=== PATIENT | female | born 1970 | race Caucasian/White ===

== ENCOUNTER → 2017-07-31 10:58 | Outpatient (REF) | payer MEDICAID, SELFPAY ==
[2017-07-31 14:02] LABS: Amphetamine/Metha Screen,Urine Negative ng/mL (<1000); Barbiturates Screen,Urine Negative ng/mL (<200); Benzodiazepines Screen,Urine Negative ng/mL (200); Cannabinoid Screen,Urine Negative ng/mL (<50); Cocaine Screen,Urine Negative ng/g (<300); Methadone Screen,Urine Negative ng/mL (<300); Opiate Screen,Urine Negative ng/mL (<300); Phencyclidine Screen,Urine Negative ng/mL (<25)
== END ==
LOC: LAB 10:58
PROVIDERS: Visit Provider Nurse Practitioner Family
DX: Z79.899 Other long term (current) drug therapy (principal)
CPT/HCPCS: 80305

== ENCOUNTER → 2018-02-16 17:53 | Outpatient (CLI) | payer MEDICAID, SELFPAY ==
[2018-02-16 19:12] LABS: Amphetamine/Metha Screen,Urine Negative ng/mL (<1000); Barbiturates Screen,Urine Negative ng/mL (<200); Benzodiazepines Screen,Urine Negative ng/mL (<200); Cannabinoid Screen,Urine Negative ng/mL (<50); Cocaine Screen,Urine Negative ng/mL (<300); Methadone Screen,Urine Negative ng/mL (<300); Opiate Screen,Urine Negative ng/mL (<300); Phencyclidine Screen,Urine Negative ng/mL (<25)
== END ==
PROVIDERS: Visit Provider Nurse Practitioner Family
DX: Z79.899 Other long term (current) drug therapy (principal)
CPT/HCPCS: 80305

== ENCOUNTER → 2018-09-01 08:11 | Outpatient (CLI) | payer MEDICAID, SELFPAY | PROVIDERS: Visit Provider Emergency Medicine | DX: R53.83 Other fatigue (principal) ==

== ENCOUNTER → 2018-09-01 14:36 | Outpatient (CLI) | payer MEDICAID, SELFPAY ==
[2018-09-01 15:01] LABS: Basophils % 0.8 % (0.1-2.0); Eosinophils # 0.1 K/mm3 (0.0-0.4); Eosinophils % 2.5 % (0.1-12.0); Hematocrit 42.5 % (37.0-47.0); Hemoglobin 13.6 g/dL (12.2-16.2); Lymphocytes # 1.8 K/mm3 (0.7-4.5); Lymphocytes % 33.9 % (10-50); Mean Corpuscular HGB Conc 32.1 g/dL (31.8-35.4); Mean Corpuscular Hemoglobin 28.9 pg (27.0-31.2); Mean Platelet Volume 7.8 fl (7.4-10.4); Monocytes # 0.4 K/mm3 (0.1-1.0); Monocytes % 6.8 % (1.7-9.3); Neutrophils # 3.1 K/mm3 (1.8-7.8); Neutrophils % 56.2 % (37.0-80.0); Platelet Count 294 K/mm3 (142-424); Red Blood Count 4.73 M/mm3 (4.20-5.40); Red Cell Distribution Width 13.1 % (11.5-17.5); White Blood Count 5.4 K/mm3 (4.8-10.8)
[2018-09-01 15:51] LABS: Alanine Aminotransferase 30 U/L (12-78); Albumin Level 3.6 gm/dL (3.4-5.0); Albumin/Globulin Ratio 1.3 (1.1-1.8); Alkaline Phosphatase 71 U/L (46-116); Anion Gap 17.2 mEq/L (5-15); Aspartate Amino Transferase 16 U/L (15-37); Bilirubin,Total 0.3 mg/dL (0.2-1.0); Blood Urea Nitrogen 7 mg/dL (7-18); Calcium 8.7 mg/dL (8.5-10.1); Carbon Dioxide 25 mmol/L (21.0-32.0); Chloride 105 mmol/L (98-107); Chol/HDL Ratio 3.1 (1-3.5); Cholesterol 138 mg/dL (140-200); Creatinine,Serum 1.01 mg/dL (0.55-1.02); Estimated Glomerular Filt Rate 59 ml/min (>60); Free T4 (Free Thyroxine) 1.04 ng/dl (0.76-1.46); GFR (African American) 71 ML/MIN (>60); Globulin 2.8 gm/dl (1.3-3.2); Glucose 81 mg/dL (74-106); HDL Cholesterol 45 mg/dL (29-89); LDL Cholesterol 80 mg/dL (0-130); Potassium 4.2 mmoL/L (3.5-5.1); Sodium 143 mmol/L (136-145); Thyroid Stimulating Hormone 2.16 uIU/ml (0.358-3.740); Total Protein,Serum 6.4 gm/dL (6.4-8.2); Triglycerides 66 mg/dL (30-200); VLDL Cholesterol 13 mg/dL (0-40)
[2018-09-02 13:09] LABS: Amphetamine/Metha Screen,Urine Negative ng/mL (<1000); Barbiturates Screen,Urine Negative ng/mL (<200); Benzodiazepines Screen,Urine Negative ng/mL (<200); Cannabinoid Screen,Urine Negative ng/mL (<50); Cocaine Screen,Urine Negative ng/mL (<300); Methadone Screen,Urine Negative ng/mL (<300); Opiate Screen,Urine Negative ng/mL (<300); Phencyclidine Screen,Urine Negative ng/mL (<25)
[2018-09-03 09:32] LABS: Vitamin D 25 Hydroxy 37.5 ng/mL (30.0-100.0)
== END ==
PROVIDERS: Visit Provider Emergency Medicine
DX: R53.83 Other fatigue (principal); Z79.899 Other long term (current) drug therapy; M54.9 Dorsalgia, unspecified; E66.3 Overweight
CPT/HCPCS: 80053; 80061; 80305; 82652; 84439; 84443; 85025

== ENCOUNTER → 2019-10-29 16:48 | Outpatient (CLI) | payer MEDICAID, SELFPAY ==
[2019-10-29 17:01] LABS: Basophils % 0.6 % (0.1-2.0); Eosinophils # 0.1 K/mm3 (0.0-0.4); Eosinophils % 3.3 % (0.1-12.0); Hematocrit 40.8 % (37.0-47.0); Hemoglobin 13.2 g/dL (12.2-16.2); Lymphocytes # 1.8 K/mm3 (0.7-4.5); Mean Corpuscular HGB Conc 32.4 g/dL (31.8-35.4); Mean Corpuscular Hemoglobin 28.9 pg (27.0-31.2); Mean Corpuscular Volume 89.2 fl (81-99); Mean Platelet Volume 7.4 fl (7.4-10.4); Monocytes # 0.2 K/mm3 (0.1-1.0); Monocytes % 5.4 % (1.7-9.3); Neutrophils # 2.2 K/mm3 (1.8-7.8); Neutrophils % 50.7 % (37.0-80.0); Platelet Count 246 K/mm3 (142-424); Red Blood Count 4.57 M/mm3 (4.20-5.40); Red Cell Distribution Width 12.6 % (11.5-17.5); White Blood Count 4.4 K/mm3 (4.8-10.8)
[2019-10-29 17:18] LABS: Alanine Aminotransferase 40 U/L (12-78); Albumin Level 3.8 g/dl (3.5-5.0); Albumin/Globulin Ratio 1.6 (1.1-1.8); Alkaline Phosphatase 77 U/L (38-126); Anion Gap 11.9 mEq/L (5-15); Aspartate Amino Transferase 41 U/L (14-36); Bilirubin,Total 0.3 mg/dl (0.2-1.3); Blood Urea Nitrogen 11 mg/dl (7-17); Calcium 9.5 mg/dl (8.4-10.2); Carbon Dioxide 27 mmol/L (22.0-30.0); Chloride 105 mmol/L (98-107); Chol/HDL Ratio 2.7 (1-3.5); Cholesterol 145 mg/dl (140-200); Estimated Glomerular Filt Rate 67 ml/min (>60); GFR (African American) 81 ML/MIN (>60); Globulin 2.4 g/dL (1.3-3.2); Glucose 113 mg/dl (74-100); HDL Cholesterol 54 mg/dl (40-60); Potassium 3.9 mmoL/L (3.5-5.1); Sodium 140 mmol/L (136-145); Total Protein,Serum 6.2 g/dl (6.3-8.2); Triglycerides 75 mg/dl (30-150); VLDL Cholesterol 15 mg/dL (0-40)
[2019-10-29 17:29] LABS: Direct LDL Cholesterol 82.97 mg/dL (100-129)
[2019-10-29 17:35] LABS: T4 (Thyroxine) 8.1 ug/dl (5.53-11.0)
[2019-10-29 17:48] LABS: Thyroid Stimulating Hormone 2.62 uIU/mL (0.465-4.68)
== END ==
PROVIDERS: Visit Provider Emergency Medicine
DX: M79.2 Neuralgia and neuritis, unspecified (principal); Z79.899 Other long term (current) drug therapy
CPT/HCPCS: 80053; 80061; 82306; 84436; 84443; 85025

== ENCOUNTER → 2019-11-15 09:31 | Outpatient (CLI) | payer MEDICAID, SELFPAY ==
[2019-11-15 11:38] LABS: Hemoglobin A1C 5.3 % (4.0-6.0)
== END ==
PROVIDERS: Visit Provider Physician Assistant
DX: R73.9 Hyperglycemia, unspecified (principal)
CPT/HCPCS: 36415; 83036

== ENCOUNTER → 2019-11-26 11:11 | Outpatient (CLI) | payer MEDICAID, SELFPAY ==
--- NOTE | 2019-11-26 11:11 | MM_ITS ---
PROCEDURE: MM DIG SCREENING MAMM BI W/CAD Referring Doctor: José Miguel Loya Patient Age:49Y CLINICAL INDICATION: screening. No hormones. No new complaints.. Patient with previous left benign surgical excisional biopsy. Family history maternal grandmother with breast cancer. COMPARISON: MG DMSB DIG MAMM-SCREEN ANUPAM from 07/14/2014 MG [id number] DIG MAMM-DX UNI ADD VIEWS-RT from 07/28/2014 MG DMSB DIG MAMM-SCREEN ANUPAM from 01/03/2016 MG DMSB DIG MAMM-SCREEN ANUPAM W/CAD from 02/07/2017 TECHNIQUE: Standard CC and MLO images were obtained. R2 CAD reviewed. Bilateral digital breast tomosynthesis included. FINDINGS: Moderate density breast bilaterally. Somewhat heterogeneous fibroglandular elements which are distributed mainly at the central breast and upper outer quadrant . Right breast:. No suspicious calcifications but there is a 2.2 x 1.6 cm ovoid mass at the lateral retroareolar region. Probable cyst but recommend ultrasound to further evaluate along with spot cc and MLO view Left breast: CC view there is a small nodular density at the lateral left breast labeled X measuring just over 5 mm which is been present since 2014 and is a stable feature.. Likely a stable small intramammary node Also seen central breast CC views a vague round density labeled Y measure 8 mm diameter. Finally medial breast on CC view also note a vague less than 5 mm round density, labeled Z. These latter densities were likely present before but would also benefit from ultrasound of left breast ultrasound when the patient returns but if no cyst is seen to correlate with area Y on ultrasound than spot views of area labeled Y may be of benefit. The vague areas Y and Z of seen on CC tomosynthesis but not well visualized on MLO tomosynthesis view thus of doubtful significance IMPRESSION: Right breast: New 2.2 x 1.6 cm mass with fairly well-defined margins lateral retroareolar region, probable cyst . This is the most prominent new finding with today's studies Warrants ultrasound and spot views Left breast: most likely stable small nodular densities noted, but would also suggest ultrasound when patient returns. (I believe X is stable nodule; the vague areas Y and Z of doubtful significance on tomosynthesis) If no cysts are identified with initial ultrasound then spot views Y may be warranted on the left as well BI-RAD Category: 0 Need Additional Imaging Evaluation FOLLOW-UP: IMM Immediate Follow-up Recommended Bilateral breast ultrasound with spot views right breast mass. If ultrasound left breast reveal no corresponding cyst the spot views on left may be warranted as well (A letter has been sent to the patient regarding results of the study.) Dictated by: Christian Macario MD 11/30/2019 08:47 Chirstian Macario MD in [place] 11/30/2019 08:47
== END ==
PROVIDERS: PCP Emergency Medicine; Visit Provider Emergency Medicine
DX: Z12.31 Encounter for screening mammogram for malignant neoplasm of breast (principal)
CPT/HCPCS: 77063; 77067

== ENCOUNTER → 2019-12-17 13:38 | Outpatient (CLI) | payer MEDICAID, SELFPAY ==
--- NOTE | 2019-12-17 13:39 | US_ITS ---
PROCEDURE: MM DIG MAMM BI DX W/CAD Digital Breast Tomosynthesis Included CLINICAL INDICATION: ABN MAMM Follow-up abnormal mammogram COMPARISON: US BL US BREAST-LT COMPLETE W/AXILLA from 01/30/2015 MG DMSB DIG MAMM-SCREEN ANUPAM from 01/03/2016 MG DMSB DIG MAMM-SCREEN ANUPAM W/CAD from 02/07/2017 MG MM DIG SCREENING MAMM BI W/CAD from 11/26/2019 US US BREAST LT COMPLETE from 12/17/2019 US US BREAST RT COMPLETE from 12/17/2019 TECHNIQUE: Spot-compression views are performed along with bilateral breast ultrasound FINDINGS: Right breast: There is a persistent 1.8 x 2.2 cm well-circumscribed nodule in the outer aspect of the right breast. There is some minimal calcification adjacent to this nodule which is probably benign. In addition, there is some nodularity involving the central aspect of the right breast in the retroareolar region at 7 mm. There is a density present just anterior to this area as well which is probably unchanged.. Right breast ultrasound: At 12 o'clock there is an 8 x 5 mm cyst. At 10 o'clock there is a 21 x 11 mm cyst corresponding to the mammographic abnormality. An additional 5 mm cyst is present at 10 o'clock. There is some tubal ectasia in the retroareolar region Left breast: Spot compression views were obtained. There is a faint nodular opacity in the inferior left breast at 5 mm. This may be outer not significantly changed in the outer aspect of the breast on the CC view. Left breast ultrasound: At 1 o'clock there are 2 cyst measuring 10 and 7 mm. At 8 o'clock there is a complicated cyst at 5 mm. No suspicious nodules are evident. IMPRESSION: Probably benign findings bilaterally. Recommend bilateral mammographic and sonographic follow-up in 6 months BI-RAD Category: 3 Probably Benign Finding Short Term Follow-up FOLLOW-UP: 6M 6Month Follow-up (A letter has been sent to the patient regarding results of the study.) Dictated by: Ramu Rose MD 12/20/2019 10:46 Ramu Rose MD in [place] 12/20/2019 10:46
== END ==
PROVIDERS: PCP Emergency Medicine; Visit Provider Physician Assistant
DX: R92.8 Other abnormal and inconclusive findings on diagnostic imaging of breast (principal)
CPT/HCPCS: 76641; 77062; 77066; G0279

== ENCOUNTER 2020-05-06 09:13 | Emergency (ER) | payer MEDICAID, SELFPAY ==
[2020-05-06 09:14] VITALS: BP 159/82; PULSE 78; RESP 16; TEMP 36.5; O2SAT 98; BMI 34.0
--- NOTE | 2020-05-06 09:17 | HMH.EDGENADL ---
ED Disposition Clinical Impression: Muscle spasm Disposition: Home, Self-Care Condition on Discharge: Good Instructions: DI for Muscle Spasm Additional Instructions: Follow-up with your primary care provider in 2 to 3 days for reevaluation. Return to the emergency department for any acute worsening symptoms or other acute new concerns. - Critical Care Critical Care Time: No Attestation: On , the high probability of a clinically significant, sudden or life threatening deterioration of the following system(s) required my full and direct attention, intervention and personal management. The time I documented below is in addition to time spent performing reported procedures but includes the following listed in this critical care notation. Medical Decision Making - Medical Records Medical records reviewed: Yes: I reviewed the patient's medical records. - Avi Inquiry Pt receiving controlled substance: No Vital Signs: 05/06/20 09:14 05/06/20 09:55 Temperature 97.7 F Temperature Source Oral Pulse Rate [Right] 78 64 Respiratory Rate 16 18 Blood Pressure [Right Arm] 159/82 H 162/80 H Blood Pressure Mean [Right Arm] 107 107 Blood Pressure Source [Right Arm] Automatic Cuff Blood Pressure Position [Right Arm] Sitting 02 Sat by Pulse Oximetry 98 94 L Oxygen Delivery Method Room Air Orders (Tests/Meds): ED MEDICATIONS Discontinued Medications Generic Name Dose Route Start Last Admin Trade Name Freq PRN Reason Stop Dose Admin Cyclobenzaprine HCl 5 mg 05/06/20 09:24 05/06/20 09:30 Cyclobenzaprine 10mg Tablet PO 05/06/20 09:25 5 mg ONCE ONE Administration Ketorolac Tromethamine 60 mg 05/06/20 09:24 05/06/20 09:30 Ketorolac 60mg/2ml Vial IM 05/06/20 09:25 60 mg ONCE ONE Administration Medical Decision Narrative: Patient here with what sounds like musculoskeletal pain, likely muscle spasm that is typical for her, but worse this morning. She has some improvement with Toradol, Flexeril and is able to ambulate in the emergency department. Motor, sensory, vascular supply distally is intact. Symptomology inconsistent with cauda equina, epidural abscess, discitis. No recent falls or trauma that would have caused a fracture that would require imaging. Discharged home. General Adult HPI - General Chief complaint: PAIN Stated complaint: back pain Time Seen by Provider: 05/06/20 09:18 Mode of Arrival: EMS Limitations: No Limitations Description of Symptoms (Recalled from ER Triage Doc. by RN): Pt c/o lower back pain that hurts around into her right hip. c/o pain when she moves advises she woke up this am with severe pain. Denies any known injury - History of Present Illness HPI narrative: This is a 49 yo female with a past medical history significant for depression, previous history of narcotic abuse currently maintained on Suboxone and baclofen, who presents to the emergency department for evaluation of right upper buttock pain that radiates around to her right hip. It is worse with moving the right leg. No recent falls or trauma. She denies any back pain, fever, urinary symptoms or abdominal pain. She typically has this pain in the morning, but she is able to get up and move around and it will loosen up. She was in so much pain this morning that she was unable to get moving, so presents to the ED. No history of cancer and no history of IV drug abuse. - Related Data Home Medications Medication Instructions Recorded Confirmed buprenorphine 8 mg-naloxone 2 mg 1 film SUBLINGUAL DAILY 17 Days 04/24/18 04/26/20 sublingual tablet #34 tab Previous Rx's Medication Instructions Recorded baclofen 10 mg tablet See Rx Instructions .ROUTE 06/28/19 .COMPLEX #180 unspecified gabapentin 600 mg tablet 600 mg PO TID #90 tab 04/26/20 bupropion HCl 200 mg tablet,12 hr See Rx Instructions .ROUTE 04/28/20 sustained-release .COMPLEX #90 each topiramate 25 mg tablet 25 mg PO HS #90
[2020-05-06 09:55] VITALS: BP 162/80; PULSE 64; RESP 18; O2SAT 94
[2020-05-06 10:20] VITALS: BP 128/78; PULSE 74; RESP 16; TEMP 36.6; O2SAT 98
== END 2020-05-06 10:22 | disposition home or self-care (01) ==
PROVIDERS: Emergency Provider Emergency Medicine; PCP Emergency Medicine
DX: M62.830 Muscle spasm of back (principal); M54.5 Low back pain; F19.11 Other psychoactive substance abuse, in remission; F41.8 Other specified anxiety disorders; F17.210 Nicotine dependence, cigarettes, uncomplicated; Z79.899 Other long term (current) drug therapy
CPT/HCPCS: 96372; 99282

== ENCOUNTER → 2020-10-04 13:16 | Outpatient (CLI) | payer MEDICAID, SELFPAY | PROVIDERS: Visit Provider Nurse Practitioner Family | DX: Z11.52 Encounter for screening for COVID-19 (principal); G62.9 Polyneuropathy, unspecified | CPT/HCPCS: U0003 ==

== ENCOUNTER 2020-11-13 14:00 | Emergency (ER) | payer MEDICAID, SELFPAY ==
[2020-11-13 16:16] VITALS: BP 124/77; PULSE 56; RESP 18; TEMP 36.7; O2SAT 100; BMI 33.2
--- NOTE | 2020-11-13 16:44 | HMH.EDUTC ---
[facility] [place] Disposition Clinical Impression: Exposure to COVID-19 virus Disposition: Home, Self-Care Condition on Discharge: Good Instructions: Preventing the Spread of Coronavirus Discharge Instructions Additional Instructions: Drink plenty of fluids. Take tylenol for pain or fever. Return if you begin to have difficulty breathing. Follow up with your regular doctor. GO TO THE ER FOR ANY WORSENING SYMPTOMS Referrals: José Miguel Loya MD [Primary Care Provider] - Time of Disposition: 16:55 Medical Decision Making - Medical Records Medical records reviewed: No: I reviewed the patient's medical records. - Avi Inquiry Pt receiving controlled substance: No Vital Signs: 11/13/20 16:16 11/13/20 17:05 Temperature 98.1 F 98 F Temperature Source Oral Pulse Rate 63 Pulse Rate [Left] 56 L Respiratory Rate 18 16 Blood Pressure 119/74 Blood Pressure [Right Arm] 124/77 Blood Pressure Mean [Right Arm] 92 02 Sat by Pulse Oximetry 100 [facility] [place] HPI - General Stated complaint: covid test Time Seen by Provider: 11/13/20 16:44 Mode of Arrival: Ambulatory Source of Information: Patient Limitations: No Limitations Description of Symptoms (Recalled from Triage Doc. by RN): pt was directly exposed to covid last fri. pt is asymptomatic. 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 She denies any symptoms so far. Her exposure would have happened 5 to 6 days ago. - Related Data Home Medications Medication Instructions Recorded Confirmed buprenorphine 8 mg-naloxone 2 mg 1 film SUBLINGUAL DAILY 17 Days 04/24/18 10/27/20 sublingual tablet #34 tab Previous Rx's Medication Instructions Recorded bupropion HCl 200 mg tablet,12 hr See Rx Instructions .ROUTE 04/28/20 sustained-release .COMPLEX #90 each topiramate 25 mg tablet 25 mg PO HS #90 tab 04/28/20 baclofen 10 mg tablet See Rx Instructions .ROUTE 08/16/20 .COMPLEX #180 unspecified azithromycin 250 mg tablet See Rx Instructions PO .COMPLEX #6 10/27/20 tab gabapentin 800 mg tablet 800 mg PO QID #120 tab 10/27/20 methylprednisolone 4 mg tablets in See Rx Instructions PO PER PKG DIR 10/27/20 a dose pack #21 tab Allergies Allergy/AdvReac Type Severity Reaction Status Date / Time No Known Allergies Allergy Verified 10/27/20 11:37 - Worker's Comp Is this a Worker's Comp case?: No [facility] History - Hepatitis A Screen Drug use history?: No High risk sexual behaviors?: No History of sexually transmitted infection?: No Currently employed?: No Childcare worker?: No Do you have indoor plumbing?: Yes Do you have electricity?: Yes Attestation statement:: This patient has been screened for Hepatitis A risk factors. 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
[2020-11-13 17:05] VITALS: BP 119/74; PULSE 63; RESP 16; TEMP 36.6
== END 2020-11-13 17:08 | disposition home or self-care (01) ==
PROVIDERS: Emergency Provider Nurse Practitioner Family; PCP Emergency Medicine
DX: Z20.822 Contact with and (suspected) exposure to COVID-19 (principal); F41.8 Other specified anxiety disorders; G43.709 Chronic migraine without aura, not intractable, without status migrainosus; F17.210 Nicotine dependence, cigarettes, uncomplicated
CPT/HCPCS: 99202; G0463; U0003

== ENCOUNTER 2021-01-10 14:19 | Emergency (ER) | payer MEDICAID, SELFPAY ==
[2021-01-10 14:25] VITALS: BP 120/84; PULSE 72; RESP 20; TEMP 36.7; O2SAT 97; BMI 33.2
--- NOTE | 2021-01-10 14:47 | HMH.EDUTC ---
[facility] [place] Clinical Impression: Sinusitis Qualifiers: Sinusitis location: unspecified location Chronicity: unspecified Qualified Code(s): J32.9 - Chronic sinusitis, unspecified Disposition: Home, Self-Care Condition on Discharge: Good Instructions: Sinusitis, DI for Sinusitis, DI for Cough -- Adult Additional Instructions: ? Start antibiotic today. Be sure to complete entire prescription even if feeling better ? Monitor temp. Tylenol every 4 hours as needed and / or ibuprofen every 6 hours as needed ( As long as your primary care physician has told you that it ok to take both. For fever/aches/pains ER if no less than 101 despite Tylenol or Motrin ? Humidifier/vaporizer or hot steamy shower ? Mucinex for your cough Be sure to drink lots of water. *Start steroid today. Helps with inflammation therefore, cough and wheezing. Follow directions on the package. Reviewed side effects. Patient reports taking them before. Follow up IMMEDIATELY for new or worsening of symptoms OR no noticeable improvement over the next 48-72 hours. 911 immediately for any life threatening symptoms such as chest pain or difficulty breathing Prescriptions: methylPREDNISolone [Medrol 4mg tab] 4 mg PO DIRECTED #21 tab Transmission Status: Pending to [facility] Azithromycin [Z-Wade 250mg Tab] 250 mg PO DIRECTED #6 tab Transmission Status: Pending to [facility] Referrals: José Miguel Loya MD [Primary Care Provider] - As needed Time of Disposition: 14:56 Medical Decision Making - Avi Inquiry Pt receiving controlled substance: No Avi was queried for this patient: No Vital Signs: 01/10/21 14:25 Temperature 98.0 F Temperature Source Oral Pulse Rate [Right Brachial] 72 Respiratory Rate 20 Blood Pressure [Right Arm] 120/84 Blood Pressure Mean [Right Arm] 96 Blood Pressure Source [Right Arm] Automatic Cuff Blood Pressure Position [Right Arm] Sitting 02 Sat by Pulse Oximetry 97 Oxygen Delivery Method Room Air - Lab Data Lab results reviewed: Yes: I reviewed the patient's lab results. Lab Results 01/10/21 14:49: Strep Scn Rapid Clinic Negative Orders (Tests/Meds): ORDERS Category Date Time Status Covid-19 Nasal PCR ([facility]) Routine Lab 01/10/21 14:22 Ordered Strep Screen Confirmation Stat Micro 01/10/21 14:49 Received [facility] [place]PI - General Stated complaint: covid symptoms Time Seen by Provider: 01/10/21 14:47 Mode of Arrival: Ambulatory Source of Information: Patient Limitations: No Limitations Description of Symptoms (Recalled from Triage Doc. by RN): PATIENT C/O BODY ACHES, SORE THROAT, HEADACHE AND RUNNY NOSE X 2 DAYS AND DIARRHEA THAT STARTED THIS AM HEENT Symptoms (Recalled from RN notes): Yes Resp Symptoms (Recalled from RN notes): No Skin Symptoms (Recalled from RN notes): No MS Symptoms (Recalled from RN notes): No Functional Status (Recalled from RN notes): WNL - History of Present Illness Provider Complaint: Patient states that she feels like she has Strep throat or sinus infection States that she has been having sinus pressure and drainage in the back of her throat States that this morning she started having diarrhea, headache and body aches go worried that she may have COVID too so she came in to get checked - Related Data Home Medications Medication Instructions Recorded Confirmed buprenorphine 8 mg-naloxone 2 mg 1 film SUBLINGUAL DAILY 17 Days 04/24/18 01/10/21 sublingual tablet #34 tab Baclofen [Lioresal 10mg tablet] 10 mg PO DAILYP PRN 01/10/21 01/10/21 Gabapentin 800 mg PO TID 01/10/21 01/10/21 Topiramate [Topiramate ER] 25 mg PO HS 01/10/21 01/10/21 buPROPion HCL [Bupropion HCl Sr] 200 mg PO BID 01/10/21 01/10/21 Previous Rx's Medication Instructions Recorded Azithromycin [Z-Wade 250mg Tab] 250 mg PO DIRECTED #6 tab 01/10/21 methylPREDNISolone [Medrol 4mg 4 mg PO DIRECTED #21 tab 01/10/21 tab] Allergies Allergy/AdvRea
[2021-01-10 14:50] LABS: UTC Strep Screen (Rapid) Negative (Negative)
[2021-01-10 15:05] VITALS: BP 120/84; PULSE 72; RESP 20; TEMP 36.7; O2SAT 97
== END 2021-01-10 15:09 | disposition home or self-care (01) ==
PROVIDERS: Emergency Provider Nurse Practitioner; PCP Emergency Medicine
DX: J32.9 Chronic sinusitis, unspecified (principal); Z20.822 Contact with and (suspected) exposure to COVID-19; F17.210 Nicotine dependence, cigarettes, uncomplicated
CPT/HCPCS: 87880; 99203; C9803; G0463; U0003; U0005

== ENCOUNTER 2021-02-19 13:21 | Emergency (ER) | payer MEDICAID, SELFPAY ==
[2021-02-19 13:48] VITALS: BP 100/75; PULSE 78; RESP 16; TEMP 36.7; O2SAT 99; BMI 21.4
[2021-02-19 14:06] LABS: UTC Strep Screen (Rapid) Negative (Negative)
--- NOTE | 2021-02-19 14:17 | HMH.EDUTC ---
[facility] [place] Disposition Clinical Impression: Sinusitis Qualifiers: Sinusitis location: unspecified location Chronicity: unspecified Qualified Code(s): J32.9 - Chronic sinusitis, unspecified Disposition: Home, Self-Care Condition on Discharge: Good Instructions: Sinusitis, DI for Sinusitis, Azithromycin Additional Instructions: *Monitor Temp, Over the counter Motrin or Tylenol as directed/as needed Tylenol every 4 hours and Motrin every 6 hours (as long as your family doctor has told you that you can take it) for fever or pain. and straight to ER if unable to lower temp less than 101.0 after medication given *Warm salt water gargles may help to soothe the throat *Throat Lozenges *Warm fluids like tea with honey may help to soothe the throat *Sleep elevated *Humidifier/Vaporizer Take medication as prescribed Your throat swab was sent for culture. Those results are typically sent to your primary care. Be sure to follow up in 2-3 days with your family doctor/primary care physician if no improvement so they can review those result and treat if necessary. If you don?t have a primary care doctor, I recommend you get one but in the mean time, you will have to return to a walk in clinic Follow up IMMEDIATELY for new or worsening symptoms or no Noticeable improvement over the next 48-72 hours. 911 for difficulty breathing or swallowing Prescriptions: methylPREDNISolone [Medrol 4mg tab] 4 mg PO DIRECTED #21 tab Transmission Status: Pending to [facility] better. Azithromycin [Z-Wade 250mg Tab] 250 mg PO DIRECTED #6 tab Transmission Status: [facility] Referrals: José Miguel Loya MD [Primary Care Provider] - As needed Time of Disposition: 14:20 Medical Decision Making - Avi Inquiry Pt receiving controlled substance: No Avi was queried for this patient: No Vital Signs: 02/19/21 13:48 Temperature 98.1 F Temperature Source Oral Pulse Rate [Left] 78 Respiratory Rate 16 Blood Pressure [Right Arm] 100/75 L Blood Pressure Mean [Right Arm] 83 02 Sat by Pulse Oximetry 99 - Lab Data Lab results reviewed: Yes: I reviewed the patient's lab results. Lab Results 02/19/21 13:54: Strep Scn Rapid Clinic Negative Orders (Tests/Meds): ORDERS Category Date Time Status Strep Screen Confirmation Routine Micro 02/19/21 13:54 Received Medical Decision Narrative: Patient states that she has taken azithromycin and Medrol in the past without complications or reactions [facility] [place] HPI - General Stated complaint: sore throat,cough,headache,runny nose,congestion Time Seen by Provider: 02/19/21 14:17 Mode of Arrival: Ambulatory Source of Information: Patient Limitations: No Limitations Description of Symptoms (Recalled from Triage Doc. by RN): pt c/o sore throat, nasal drainage/congestion and ROE x2 days. HEENT Symptoms (Recalled from RN notes): Yes (sore throat, nasal drainage/congestion and ROE) Resp Symptoms (Recalled from RN notes): No Skin Symptoms (Recalled from RN notes): No MS Symptoms (Recalled from RN notes): No Functional Status (Recalled from RN notes): na - History of Present Illness Provider Complaint: Patient states that she has been having sinus pain and pressure along with sore throat, headache and cough States that she hasnt felt well in a couple of days and today she was still feeling bad so she came in - Related Data Home Medications Medication Instructions Recorded Confirmed buprenorphine 8 mg-naloxone 2 mg 1 film SUBLINGUAL DAILY 17 Days 04/24/18 01/31/21 sublingual tablet #34 tab Baclofen [Lioresal 10mg tablet] 10 mg PO DAILYP PRN 01/10/21 01/31/21 Topiramate [Topiramate ER] 25 mg PO HS 01/10/21 01/31/21 buPROPion HCL [Bupropion HCl Sr] 200 mg PO BID 01/10/21 01/31/21 Previous Rx's Medication Instructions Recorded gabapentin 800 mg tablet 800 mg PO TID #90 tab 01/31/21 Azithromycin [Z-Wade 250mg Tab] 250 mg PO DIRECTED #6 tab 02/19/21 methylPREDNISolone
[2021-02-19 14:54] VITALS: BP 100/75; PULSE 78; RESP 12; TEMP 36.7
== END 2021-02-19 14:55 | disposition home or self-care (01) ==
PROVIDERS: Emergency Provider Nurse Practitioner; PCP Emergency Medicine
DX: J32.9 Chronic sinusitis, unspecified (principal); F41.8 Other specified anxiety disorders
CPT/HCPCS: 87880; 99202; G0463

== ENCOUNTER 2021-04-11 09:47 | Emergency (ER) | payer MEDICAID, SELFPAY ==
[2021-04-11 11:19] VITALS: BP 140/71; PULSE 62; RESP 16; TEMP 36.6; O2SAT 100; BMI 31.2
--- NOTE | 2021-04-11 11:33 | HMH.EDUTC ---
[facility] [place] Disposition Clinical Impression: Strep throat Disposition: Home, Self-Care Condition on Discharge: Good Instructions: Strep Throat, DI for Strep Throat Additional Instructions: Drink plenty of fluids. Take tylenol or ibuprofen for pain or fever. Take the medications as directed. Follow up with your regular doctor. GO TO THE ER FOR ANY WORSENING SYMPTOMS Throw your tooth brush away and get a new one. Prescriptions: Brompheniramine/Pseudoephed/Dm [Bromfed Dm Cough Syrup] 5 ml PO Q6HP PRN #240 ml PRN Reason: Cough Transmission Status: Received by [facility] Amoxicillin [Amoxicillin 500mg Tab] 500 mg PO TID 10 Days #30 tab Transmission Status: Received by [facility] Referrals: José Miguel Loya MD [Primary Care Provider] - Forms: Work/School Release Time of Disposition: 11:45 Medical Decision Making - Medical Records Medical records reviewed: No: I reviewed the patient's medical records. - Avi Inquiry Pt receiving controlled substance: No Vital Signs: 04/11/21 11:19 04/11/21 11:58 Temperature 98 F 98 F Temperature Source Temporal Artery Scan Pulse Rate 62 Pulse Rate [Left] 62 Respiratory Rate 16 16 Blood Pressure 140/71 Blood Pressure [Right Arm] 140/71 Blood Pressure Mean [Right Arm] 94 02 Sat by Pulse Oximetry 100 - Lab Data Lab results reviewed: Yes: I reviewed the patient's lab results. Lab Results 04/11/21 11:26: Influenza Type A Ag Negative, Influenza Type B Ag Negative 04/11/21 11:26: Strep Scn Rapid Clinic Positive A [facility] [place] HPI - General Stated complaint: sore throat Time Seen by Provider: 04/11/21 11:33 Mode of Arrival: Ambulatory Source of Information: Patient Limitations: No Limitations Description of Symptoms (Recalled from Triage Doc. by RN): pt c/o chills, body aches, sore throat, cold sweats, ROE, and lethargy. since last night. HEENT Symptoms (Recalled from RN notes): Yes Resp Symptoms (Recalled from RN notes): No Skin Symptoms (Recalled from RN notes): No MS Symptoms (Recalled from RN notes): No Functional Status (Recalled from RN notes): wnl - History of Present Illness Provider Complaint: She states that for the past 2 days she has had a sore throat, sinus congestion, and low grade fever. She had a negative rapid covid-19 test done yesterday at her work. - Related Data Home Medications Medication Instructions Recorded Confirmed buprenorphine 8 mg-naloxone 2 mg 1 film SUBLINGUAL DAILY 17 Days 04/24/18 01/31/21 sublingual tablet #34 tab Baclofen [Lioresal 10mg tablet] 10 mg PO DAILYP PRN 01/10/21 01/31/21 Topiramate [Topiramate ER] 25 mg PO HS 01/10/21 01/31/21 buPROPion HCL [Bupropion HCl Sr] 200 mg PO BID 01/10/21 01/31/21 Previous Rx's Medication Instructions Recorded gabapentin 800 mg tablet 800 mg PO TID #90 tab 01/31/21 Azithromycin [Z-Wade 250mg Tab] 250 mg PO DIRECTED #6 tab 02/19/21 methylPREDNISolone [Medrol 4mg 4 mg PO DIRECTED #21 tab 02/19/21 tab] Amoxicillin [Amoxicillin 500mg Tab] 500 mg PO TID 10 Days #30 tab 04/11/21 Brompheniramine/Pseudoephed/Dm 5 ml PO Q6HP PRN #240 ml 04/11/21 [Bromfed Dm Cough Syrup] Allergies Allergy/AdvReac Type Severity Reaction Status Date / Time No Known Allergies Allergy Verified 01/31/21 09:18 - Worker's Comp Is this a Worker's Comp case?: No [facility] History - Hepatitis A Screen Drug use history?: No High risk sexual behaviors?: No History of sexually transmitted infection?: No Currently employed?: No Childcare worker?: No Do you have indoor plumbing?: Yes Do you have electricity?: Yes Attestation statement:: This patient has been screened for Hepatitis A risk factors. I have reviewed the patient's past medical history: Yes Medical History: Reports:: Anxiety, Depression, Migraine Denies:: Cancer, Diabetes Mellitus Type 1, Diabetes Mellitus Type 2, MRSA Other Medical History: Reports: Other Comment: NEUROPATHY,CHRON
[2021-04-11 11:34] LABS: UTC Strep Screen (Rapid) Positive (Negative)
[2021-04-11 11:37] LABS: UTC Influenza A Antigen Negative (Negative); UTC Influenza B Antigen Negative (Negative)
[2021-04-11 11:58] VITALS: BP 140/71; PULSE 62; RESP 16; TEMP 36.6
== END 2021-04-11 11:59 | disposition home or self-care (01) ==
PROVIDERS: Emergency Provider Nurse Practitioner Family; PCP Emergency Medicine
DX: J02.0 Streptococcal pharyngitis (principal); F41.8 Other specified anxiety disorders
CPT/HCPCS: 87804; 87880; 99203; G0463

== ENCOUNTER 2021-04-22 17:24 | Emergency (ER) | payer MEDICAID, SELFPAY ==
[2021-04-22 17:56] VITALS: BP 162/105; PULSE 80; RESP 18; TEMP 37; O2SAT 99; BMI 32.2
--- NOTE | 2021-04-22 18:51 | HMH.EDUTC ---
[facility] [place] Disposition Clinical Impression: Muscle spasm, Torticollis, Acute radicular low back pain Disposition: Home, Self-Care Condition on Discharge: Good Instructions: Low Back Pain, DI for Low Back Pain, DI for Torticollis Additional Instructions: Go home and rest. It would be best if you rested tomorrow too. No heavy lifting. No twisting. Take the oral medications as directed. The muscle relaxer (cyclobenzaprine--Flexeril) will make you drowsy, so don't drive or operate heavy machinery after taking it. Don't start the oral steroids (medrol dose pack) until tomorrow, since you had the shots in here today. Follow up with your regular doctor. GO TO THE ER FOR ANY WORSENING SYMPTOMS OR CONCERN, ESPECIALLY BOWEL OR BLADDER ISSUES, SADDLE AREA NUMBNESS, FEVER, ETC Prescriptions: Cyclobenzaprine HCl [Cyclobenzaprine 10mg Tab] 10 mg PO BIDP PRN #20 tab PRN Reason: Muscle Spasm Transmission Status: Received by [facility] methylPREDNISolone [Medrol] 4 mg PO DIRECTED 6 Days #21 packet Transmission Status: Received by [facility] Referrals: José Miguel Loya MD [Primary Care Provider] - Forms: Work/School Release Time of Disposition: 19:28 Medical Decision Making - Medical Records Medical records reviewed: No: I reviewed the patient's medical records. - Avi Inquiry Pt receiving controlled substance: No Vital Signs: 04/22/21 17:56 04/22/21 19:34 Temperature 98.6 F 98.6 F Temperature Source Oral Pulse Rate 80 Pulse Rate [Left] 80 Respiratory Rate 18 18 Blood Pressure 162/105 H Blood Pressure [Right Arm] 162/105 H Blood Pressure Mean [Right Arm] 124 02 Sat by Pulse Oximetry 99 Orders (Tests/Meds): ED MEDICATIONS Discontinued Medications Generic Name Dose Route Start Last Admin Trade Name Freq PRN Reason Stop Dose Admin Ketorolac Tromethamine 60 mg 04/22/21 19:01 04/22/21 19:11 Ketorolac 60mg/2ml Vial IM 04/22/21 19:02 60 mg ONCE ONE Administration Methylprednisolone Sodium Succinate 125 mg 04/22/21 19:01 04/22/21 19:11 Methylprednisolone Sod Succ 125mg Vial IM 04/22/21 19:02 125 mg ONCE ONE Administration [facility] [place] HPI - General Stated complaint: tired, body aches headache Time Seen by Provider: 04/22/21 18:51 Mode of Arrival: Ambulatory Source of Information: Patient Limitations: No Limitations Description of Symptoms (Recalled from Triage Doc. by RN): pt c/o head, neck and back pain. pt states she was moving a fridge on friday and has been sore all over since. HEENT Symptoms (Recalled from RN notes): No Resp Symptoms (Recalled from RN notes): No Skin Symptoms (Recalled from RN notes): No MS Symptoms (Recalled from RN notes): Yes Functional Status (Recalled from RN notes): wnl - History of Present Illness Provider Complaint: She states that for the past 2 days she has had neck stiffness, neck pain, low back pain and pain that radiates down both legs. She denies any injury, but she did move her refrigerator before her symptoms began. She thinks that she has pulled multiple muscles in her back and neck from doing this. She has been taking her prescribed neurontin and muscle relaxers at home for this and has not got any relief. She denies any bowel or bladder issues. She was treated for strep throat last week, but she states that she has got completely better from that and she is finishing up her antibiotics. - Related Data Home Medications Medication Instructions Recorded Confirmed buprenorphine 8 mg-naloxone 2 mg 1 film SUBLINGUAL DAILY 17 Days 04/24/18 01/31/21 sublingual tablet #34 tab Baclofen [Lioresal 10mg tablet] 10 mg PO DAILYP PRN 01/10/21 01/31/21 Topiramate [Topiramate ER] 25 mg PO HS 01/10/21 01/31/21 buPROPion HCL [Bupropion HCl Sr] 200 mg PO BID 01/10/21 01/31/21 Previous Rx's Medication Instructions Recorded gabapentin 800 mg tablet 800 mg PO TID #90 tab 01/31/21 Azithromycin [Z-Wade 250mg Tab] 2
[2021-04-22 19:34] VITALS: BP 162/105; PULSE 80; RESP 18; TEMP 37
== END 2021-04-22 19:37 | disposition home or self-care (01) ==
PROVIDERS: Emergency Provider Nurse Practitioner Family; PCP Emergency Medicine
DX: M43.6 Torticollis (principal); M62.838 Other muscle spasm; F41.8 Other specified anxiety disorders
CPT/HCPCS: 96372; 99202; G0463

== ENCOUNTER → 2021-04-25 15:41 | Outpatient (CLI) | payer MEDICAID, SELFPAY | PROVIDERS: Visit Provider Nurse Practitioner | DX: U07.1 COVID-19 (principal) | CPT/HCPCS: C9803; U0003; U0005 ==

== ENCOUNTER 2021-05-03 14:13 | Emergency (ER) | payer MEDICAID, SELFPAY ==
[2021-05-03 16:20] VITALS: BP 141/78; PULSE 68; RESP 17; TEMP 36.6; O2SAT 99; BMI 23.8
--- NOTE | 2021-05-03 17:08 | HMH.EDUTC ---
[facility] [place]ression: Encounter to obtain excuse from work Disposition: Home, Self-Care Condition on Discharge: Good Instructions: DI for Headache, DI for Nausea -- Adult Additional Instructions: Follow up with your Family Doctor if needed Over the counter motrin and/or Tylenol for headache Return if needed Straight to ER if any life threatening symptoms Referrals: José Miguel Loya MD [Primary Care Provider] - As needed Forms: Work/School Release Time of Disposition: 17:11 Medical Decision Making - Avi Inquiry Pt receiving controlled substance: No Avi was queried for this patient: No Vital Signs: 05/03/21 16:20 Temperature 97.8 F Temperature Source Oral Pulse Rate [Right Brachial] 68 Respiratory Rate 17 Blood Pressure [Right Arm] 141/78 H Blood Pressure Mean [Right Arm] 99 Blood Pressure Source [Right Arm] Automatic Cuff Blood Pressure Position [Right Arm] Sitting 02 Sat by Pulse Oximetry 99 Oxygen Delivery Method Room Air [facility] [place] - General Stated complaint: ROE, belly ache Time Seen by Provider: 05/03/21 17:08 Mode of Arrival: Ambulatory Source of Information: Patient Limitations: No Limitations Description of Symptoms (Recalled from Triage Doc. by RN): PATIENT C/O HEADACHE. RECENTLY DIAGNOSED WITH COVID HEENT Symptoms (Recalled from RN notes): Yes Resp Symptoms (Recalled from RN notes): No Skin Symptoms (Recalled from RN notes): No MS Symptoms (Recalled from RN notes): No Functional Status (Recalled from RN notes): WNL - History of Present Illness Provider Complaint: Patient states that she recently had COVID and is out of quarantine but this morning she woke up with headache and upset stomach and she was unable to go to work States that she took some over the counter medication and it did help but she needs a note for work - Related Data Home Medications Medication Instructions Recorded Confirmed buprenorphine 8 mg-naloxone 2 mg 1 film SUBLINGUAL DAILY 17 Days 04/24/18 01/31/21 sublingual tablet #34 tab Baclofen [Lioresal 10mg tablet] 10 mg PO DAILYP PRN 01/10/21 01/31/21 Topiramate [Topiramate ER] 25 mg PO HS 01/10/21 01/31/21 buPROPion HCL [Bupropion HCl Sr] 200 mg PO BID 01/10/21 01/31/21 Previous Rx's Medication Instructions Recorded gabapentin 800 mg tablet 800 mg PO TID #90 tab 01/31/21 Azithromycin [Z-Wade 250mg Tab] 250 mg PO DIRECTED #6 tab 02/19/21 methylPREDNISolone [Medrol 4mg 4 mg PO DIRECTED #21 tab 02/19/21 tab] Amoxicillin [Amoxicillin 500mg Tab] 500 mg PO TID 10 Days #30 tab 04/11/21 Brompheniramine/Pseudoephed/Dm 5 ml PO Q6HP PRN #240 ml 04/11/21 [Bromfed Dm Cough Syrup] Cyclobenzaprine HCl 10 mg PO BIDP PRN #20 tab 04/22/21 [Cyclobenzaprine 10mg Tab] methylPREDNISolone [Medrol] 4 mg PO DIRECTED 6 Days #21 04/22/21 packet Allergies Allergy/AdvReac Type Severity Reaction Status Date / Time No Known Allergies Allergy Verified 01/31/21 09:18 - Worker's Comp Is this a Worker's Comp case?: No [facility] History - Hepatitis A Screen Drug use history?: No High risk sexual behaviors?: No History of sexually transmitted infection?: No Currently employed?: No Childcare worker?: No Do you have indoor plumbing?: Yes Do you have electricity?: Yes Attestation statement:: This patient has been screened for Hepatitis A risk factors. 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
[2021-05-03 17:12] VITALS: BP 141/78; PULSE 68; RESP 17; TEMP 36.6; O2SAT 99
== END 2021-05-03 17:23 | disposition home or self-care (01) ==
PROVIDERS: Emergency Provider Nurse Practitioner; PCP Emergency Medicine
DX: Z02.89 Encounter for other administrative examinations (principal); Z86.16 Personal history of COVID-19; R51.9 Headache, unspecified
CPT/HCPCS: 99202; G0463

== ENCOUNTER → 2021-06-01 09:51 | Outpatient (CLI) | payer MEDICAID, SELFPAY ==
--- NOTE | 2021-06-01 09:52 | MM_ITS ---
PROCEDURE INFORMATION: Exam: MG Bilateral Screening 3D Mammography Exam date and time: 06/01/2021 9:52 AM Age: 50 years old Clinical indication: Screening mammogram TECHNIQUE: Imaging protocol: Bilateral Screening tomosynthesis and 2D mammography including computer-aided detection (CAD) when performed. COMPARISON: 1. MG MM DIG SCREENING MAMM BI W/CAD 11/26/2019 11:16 AM 2. MG DMSB DIG MAMM-SCREEN ANUPAM W/CAD 02/07/2017 9:42 AM FINDINGS: MAMMOGRAPHY: Breast composition: The breast tissue is heterogeneously dense, which may obscure small masses. Mass: Stable benign-appearing nodules are present in the bilateral breasts, previously demonstrated to reflect cysts,. No new or morphologically suspicious nodule has developed to suggest malignancy. Architectural distortion: No new or suspicious architectural distortion. Calcifications: No new or suspicious calcifications are present Asymmetric density: No new or suspicious asymmetric density is present Skin thickening: None. Axillary adenopathy: None. IMPRESSION: No mammographic evidence of malignancy. Recommend annual screening mammography unless otherwise clinically indicated. ASSESSMENT: BI-RADS category 2: Benign
== END ==
PROVIDERS: PCP Emergency Medicine; Visit Provider Emergency Medicine
DX: Z12.31 Encounter for screening mammogram for malignant neoplasm of breast (principal)
CPT/HCPCS: 77063; 77067

== ENCOUNTER 2021-10-30 10:45 | Emergency (ER) | payer MEDICAID, SELFPAY ==
[2021-10-30 11:01] VITALS: BP 133/79; PULSE 72; RESP 16; TEMP 36.5; O2SAT 99; BMI 31.2
--- NOTE | 2021-10-30 11:15 | HMH.EDUTC ---
[facility] [place] Disposition Clinical Impression: Viral syndrome, Exposure to COVID-19 virus Disposition: Home, Self-Care Condition on Discharge: Good Instructions: DI for COVID-19 (Suspected or Confirmed ), Preventing the Spread of Coronavirus Discharge Instructions Additional Instructions: Drink plenty of fluids. Take tylenol or ibuprofen for pain or fever. Take the medications as directed. Follow up with your regular doctor. GO TO THE ER FOR ANY WORSENING SYMPTOMS Quarantine until you know the results of your covid-19 test. Notify your school or workplace of your results and follow their instructions regarding return to work/school. Prescriptions: Ondansetron [Zofran 4mg ODT] 4 mg PO Q8HP PRN #20 tab PRN Reason: Nausea Transmission Status: Received by [facility] Benzonatate [Benzonatate 100mg cap] 100 mg PO TIDP PRN #30 cap PRN Reason: Cough Transmission Status: Received by [facility] Referrals: José Miguel Loya MD [Primary Care Provider] - Forms: Work/School Release Time of Disposition: 11:39 Medical Decision Making - Medical Records Medical records reviewed: No: I reviewed the patient's medical records. - Avi Inquiry Pt receiving controlled substance: No Vital Signs: 10/30/21 11:01 10/30/21 11:41 Temperature 97.7 F 97.7 F Temperature Source Oral Pulse Rate 72 Pulse Rate [Left] 72 Respiratory Rate 16 16 Blood Pressure 133/79 Blood Pressure [Right Arm] 133/79 Blood Pressure Mean [Right Arm] 97 02 Sat by Pulse Oximetry 99 - Lab Data Lab Results 10/30/21 10:59: Strep [facility] Negative Orders (Tests/Meds): ORDERS Category Date Time Status Strep Screen Confirmation Stat Micro 10/30/21 10:59 Received [facility] [place] HPI - General Stated complaint: sore throat, body aches, h/a, bilateral ear pain Time Seen by Provider: 10/30/21 11:15 Mode of Arrival: Ambulatory Source of Information: Patient Limitations: No Limitations Description of Symptoms (Recalled from Triage Doc. by RN): patient comes in for sore throat, bilateral ear pain, body aches. symptoms began friday HE Symptoms (Recalled from RN notes): Yes Resp Symptoms (Recalled from RN notes): Yes Skin Symptoms (Recalled from RN notes): No MS Symptoms (Recalled from RN notes): No Functional Status (Recalled from RN notes): n/a - History of Present Illness Provider Complaint: She states that for the past 2 days she has had scratchy sore throat, chills, body aches, nonproductive cough and malaise. She has been exposed to covid-19 at her workplace several times over the pasts 1 week. - Related Data Home Medications Medication Instructions Recorded Confirmed buprenorphine 8 mg-naloxone 2 mg 1 film SUBLINGUAL DAILY 17 Days 04/24/18 05/08/21 sublingual tablet #34 tab Previous Rx's Medication Instructions Recorded bupropion HCl 200 mg tablet,12 hr 200 mg PO BID 90 Days #180 each 05/08/21 sustained-release furosemide 20 mg tablet 10 mg PO Q OTHER DAY #30 tab 08/03/21 gabapentin 800 mg tablet 800 mg PO TID #90 tab 08/03/21 baclofen 10 mg tablet See Rx Instructions .ROUTE 09/17/21 .COMPLEX #90 tab topiramate 25 mg capsule See Rx Instructions .ROUTE 09/17/21 sprinkle,extended release 24 hr .COMPLEX #90 capsule Benzonatate [Benzonatate 100mg 100 mg PO TIDP PRN #30 cap 10/30/21 cap] Ondansetron [Zofran 4mg ODT] 4 mg PO Q8HP PRN #20 tab 10/30/21 Allergies Allergy/AdvReac Type Severity Reaction Status Date / Time No Known Allergies Allergy Verified 10/30/21 11:04 - Worker's Comp Is this a Worker's Comp case?: No [facility] History - Hepatitis A Screen Attestation statement:: This patient has been screened for Hepatitis A risk factors. I have reviewed the patient's past medical history: Yes Medical History: Reports:: Anxiety, Depression, Migraine Denies:: Cancer, Diabetes Mellitus Type 1, Diabetes Mellitus Type 2, MRSA Other Medical Histor
[2021-10-30 11:21] LABS: UTC Strep Screen (Rapid) Negative (Negative)
[2021-10-30 11:41] VITALS: BP 133/79; PULSE 72; RESP 16; TEMP 36.5
== END 2021-10-30 11:45 | disposition home or self-care (01) ==
PROVIDERS: Emergency Provider Nurse Practitioner Family; PCP Emergency Medicine
DX: B34.9 Viral infection, unspecified (principal); J02.9 Acute pharyngitis, unspecified; H92.03 Otalgia, bilateral; R53.81 Other malaise; Z20.822 Contact with and (suspected) exposure to COVID-19; M79.10 Myalgia, unspecified site; M65.4 Radial styloid tenosynovitis [de Quervain]; M54.9 Dorsalgia, unspecified; G89.29 Other chronic pain; G43.909 Migraine, unspecified, not intractable, without status migrainosus; G62.9 Polyneuropathy, unspecified; M19.90 Unspecified osteoarthritis, unspecified site; F32.A Depression, unspecified; F41.9 Anxiety disorder, unspecified; F17.210 Nicotine dependence, cigarettes, uncomplicated; Z78.0 Asymptomatic menopausal state; Z82.49 Family history of ischemic heart disease and other diseases of the circulatory system; Z83.438 Family history of other disorder of lipoprotein metabolism and other lipidemia; Z83.3 Family history of diabetes mellitus; Z83.2 Family history of diseases of the blood and blood-forming organs and certain disorders involving the immune mechanism
CPT/HCPCS: 87880; 99213; C9803; G0463; U0003; U0005

== ENCOUNTER 2022-01-25 18:04 | Emergency (ER) | payer MEDICAID, SELFPAY ==
--- NOTE | 2022-01-25 18:10 | EXP.UTC ---
Discharge Plan Disposition Patient Disposition: Home, Self-Care Condition: Good Prescriptions Prescriptions: New prednisone [prednisone] 20 mg tablet 20 mg PO BID 5 Days Qty: 10 0RF amoxicillin-pot clavulanate 875-125 mg Tablet 1 tab PO Q12H Qty: 20 0RF No Action furosemide [Lasix] 20 mg tablet 10 mg PO Q OTHER DAY Qty: 30 0RF buprenorphine-naloxone 8-2 mg tablet, sublingual 1 film SUBLINGUAL DAILY 17 Days Qty: 34 pantoprazole [Protonix] 40 mg tablet,delayed release (DR/EC) 40 mg PO DAILY Qty: 30 2RF gabapentin 800 mg tablet 800 mg PO TID Qty: 90 2RF topiramate 25 mg capsule,sprinkle,ER 24hr See Rx Instructions .ROUTE .COMPLEX Qty: 90 5RF Dose Instruction: TAKE ONE CAPSULE BY MOUTH EVERY DAY AT BEDTIME FOR migraine Rx Instructions: TAKE ONE CAPSULE BY MOUTH EVERY DAY AT BEDTIME FOR migraine bupropion HCl 200 mg tablet sustained-release 12 hr See Rx Instructions .ROUTE .COMPLEX Qty: 90 3RF Dose Instruction: TAKE ONE TABLET BY MOUTH TWICE DAILY FOR DEPRESSION Rx Instructions: TAKE ONE TABLET BY MOUTH TWICE DAILY FOR DEPRESSION baclofen 10 mg tablet 10 mg PO Q8H PRN (Reason: muscle spasm) Qty: 90 2RF ondansetron 4 MG tablet,disintegrating 4 mg PO Q8HP PRN (Reason: Nausea) Qty: 20 0RF Referrals Follow up/Referrals: José Miguel Loya MD [Primary Care Provider] - See instructions Activity Restrictions/Add. Instructions Additional Instructions/Restrictions: Take all medicine as prescribed until gone Follow up with PCP if not improving Clinical Impressions Clinical Impression: Otitis media Instructions Patient Instructions: DI for Otitis Media (Middle Ear Infection)-Child Discharge ED Provider: Fawn Richard [facility] [place] HPI General Stated complaint: SORE THROAT, CONGESTION Time Seen by Provider: 01/25/22 19:06 History of Present Illness Provider Complaint: Sore throat, congestion x 3 days. Body aches, chills. No fever. Bilateral ear pain, swelling in neck. Productive cough. No vomiting or diarrhea. Onset (ago): day(s) Relieving factors: none Exacerbating factors: none Associated symptoms: cough, headaches and malaise Treatments prior to arrival: none Related Data Home Medications Medication Instructions Recorded Confirmed buprenorphine 8 mg-naloxone 2 mg 1 film sublingual DAILY SUBSTANCE 04/24/18 11/21/21 sublingual tablet ABUSE 17 days #34 tabs Previous Rx's Medication Instructions Recorded furosemide 20 mg tablet (Lasix) 10 mg PO Q OTHER DAY #30 tabs 08/03/21 ondansetron 4 mg disintegrating 4 mg PO Q8HP PRN Nausea #20 tabs 10/30/21 tablet gabapentin 800 mg tablet 800 mg PO TID NERVE PAIN #90 tabs 11/21/21 pantoprazole 40 mg tablet,delayed 40 mg PO DAILY #30 tabs 11/21/21 release (Protonix) topiramate 25 mg capsule See Rx Instructions .Route 12/25/21 sprinkle,extended release 24 hr .COMPLEX #90 caps bupropion HCl 200 mg tablet,12 hr See Rx Instructions .Route 12/26/21 sustained-release .COMPLEX #90 tabs baclofen 10 mg tablet 10 mg PO Q8H PRN muscle spasm #90 12/27/21 tabs amoxicillin 875 mg-potassium 1 tab PO Q12H #20 tabs 01/25/22 clavulanate 125 mg tablet prednisone 20 mg tablet 20 mg PO BID 5 days #10 tabs 01/25/22 Allergies Allergy/AdvReac Type Severity Reaction Status Date / Time No Known Allergies Allergy Verified 11/21/21 15:27 PFSH PFSH Social History Smoking Status: Current every day smoker tobacco type: cigarettes packs per day: 1 alcohol intake: never substance use type: former substance user and opiates current occupational status: employed Travel in the last 8 weeks: None household members: children housing: house ROS Obtained: Yes All systems reviewed & no additional complaints except as documented Constitutional Constitutional: Reports body ache, Reports chills, Reports fatigue, Denies fever(s), Reports headache(s) and Reports malaise ENT Ears,
[2022-01-25 18:56] VITALS: BP 150/88; PULSE 94; RESP 17; TEMP 36.7; O2SAT 98; BMI 31.2
[2022-01-25 19:14] LABS: UTC Strep Screen (Rapid) Negative (Negative)
[2022-01-25 19:37] VITALS: BP 150/88; PULSE 94; RESP 17; TEMP 36.7; O2SAT 98
== END 2022-01-25 19:50 | disposition home or self-care (01) ==
PROVIDERS: Emergency Provider Physician Assistant; PCP Emergency Medicine
DX: H66.90 Otitis media, unspecified, unspecified ear (principal)
CPT/HCPCS: 87880; 96372; 99212; C9803; G0463; J0696; J1040; U0003; U0005

== ENCOUNTER → 2022-03-09 13:52 | Outpatient (CLI) | payer MEDICAID, SELFPAY ==
--- NOTE | 2022-03-09 14:00 | XR_ITS ---
PROCEDURE INFORMATION: Exam: XR Right Foot Complete; Alignment Exam date and time: 03/09/2022 2:05 PM Age: 51 years old Clinical indication: Pain; Foot; Bilateral; Additional info: Foot pain TECHNIQUE: Imaging protocol: Radiologic exam of the Right foot. Views: 3 or more views. COMPARISON: No relevant prior studies available. FINDINGS: Bones/joints: Normal. No acute fracture. Joint spaces are preserved. No dislocation or subluxation. Soft tissues: Normal. IMPRESSION: No evidence of acute osseous injury or significant degenerative change.
--- NOTE | 2022-03-09 14:00 | XR_ITS ---
PROCEDURE INFORMATION: Exam: XR Left Foot Complete; Alignment Exam date and time: 03/09/2022 2:05 PM Age: 51 years old Clinical indication: Pain; Foot; Bilateral; Additional info: Foot pain TECHNIQUE: Imaging protocol: Radiologic exam of the Left foot. Views: 3 or more views. COMPARISON: No relevant prior studies available. FINDINGS: Bones/joints: Normal. No acute fracture. Joint spaces are preserved. No dislocation or subluxation. Soft tissues: Normal. IMPRESSION: No evidence of acute osseous injury or significant degenerative arthritic change.
== END ==
PROVIDERS: PCP Emergency Medicine; Visit Provider Emergency Medicine
DX: M79.672 Pain in left foot (principal); M79.671 Pain in right foot
CPT/HCPCS: 73630

== ENCOUNTER → 2022-04-08 08:50 | Outpatient (CLI) | payer MEDICAID, SELFPAY ==
--- NOTE | 2022-04-08 08:54 | US_ITS ---
FINAL REPORT CLINICAL HISTORY: POSTMENOPAUSAL BLEEDING FINDINGS: Transvaginal sonographic images of the pelvis were obtained. The uterus measures 8.6 x 5.1 x 3.9 cm. The endometrium measures 4 mm, which is within normal limits. There are numerous scattered fibroids with the largest measuring up to 2.6 cm. The right ovary measures 2.6 cm in length and left ovary measures 2.2 cm in length. Normal blood flow seen to the ovaries. There is no evidence of free fluid. IMPRESSION: Numerous fibroids with the largest measuring up to 2.6 cm, otherwise unremarkable. Reviewed, Interpreted and Dictated by Geovanny Rawls MD Transcribed by Lily Aguirre Authenticated and [facility]
--- NOTE | 2022-04-08 08:54 | US_ITS ---
PROCEDURE INFORMATION: Exam: US Left Breast, Complete Exam date and time: 04/08/2022 9:26 AM Age: 51 years old Clinical indication: Palpable concern left breast. TECHNIQUE: Imaging protocol: Complete ultrasound of all four quadrants of the Left breast and the retroareolar regions, including ultrasound of the axilla when performed. COMPARISON: 1. MG MM DIG SCREENING MAMM BI W/CAD 06/01/2021 9:51 AM 2. US BREAST LT COMPLETE 12/17/2019 2:34 PM FINDINGS: Left sonography, all 4 quadrants, retro areolar and axilla. At the area of palpable concern at 10 o'clock 5 cm from the nipple, no sonographic findings demonstrated. At 1 o'clock 4 cm from the nipple, simple cyst measuring 1.3 by 1.6 x 1.0 cm, which is larger than 12/17/2019 when it measured 0.7 x 0.5 by 1.0 cm. At 9 o'clock 4 cm from the nipple duct, 0.2 x 0.4 x 0.2 cm simple cyst which may correspond to the cystic finding annotated 8 o'clock on 12/17/2019, which measured 0.5 by 0.3 by 0.5 cm on 12/17/2019. Sonographically unremarkable left axillary lymph nodes. IMPRESSION: No mammographic findings at the area of palpable concern on the left, advise recall for bilateral diagnostic mammography with spot compression the area of clinical concern in the left (as screening mammogram is due May 2022). Further evaluation of a palpable abnormality should be based on clinical grounds regardless of radiographic findings or lack thereof. Benign-appearing waxing and waning change on the left. ASSESSMENT: BI-RADS Category 0: Incomplete- Need Additional Imaging Evaluation and/or Prior Mammograms for Comparison
== END ==
PROVIDERS: PCP Emergency Medicine; Visit Provider Obstetrics & Gynecology
DX: N95.0 Postmenopausal bleeding (principal); N60.02 Solitary cyst of left breast
CPT/HCPCS: 76641; 76830

== ENCOUNTER 2022-05-01 15:47 | Emergency (ER) | payer MEDICAID, SELFPAY ==
[2022-05-01 16:20] VITALS: BP 129/63; PULSE 91; RESP 17; TEMP 36.8; O2SAT 98; BMI 29.9
[2022-05-01 16:37] LABS: Apearance,Urine Cloudy (Clear); Bilirubin,Urine Negative (Negative); Blood, Urine Trace (Negative); Color,Urine Dark Yellow (Yellow); Glucose,Urine (UA) Negative (Negative); Ketones,Urine Negative (Negative); Protein,Urine 1+ (Negative); UTC Leukocyte Esterase,Urine Trace (Negative); UTC Nitrate,Urine Negative (Negative); Urobilinogen,Urine 0.2 EU/dl (0.2)
--- NOTE | 2022-05-01 16:51 | EXP.UTC ---
Discharge Plan Disposition Patient Disposition: Home, Self-Care Condition: Good Prescriptions Prescriptions: New phenazopyridine [Pyridium] 200 mg tablet 200 mg PO Q8H 2 Days Qty: 6 0RF cefdinir 300 mg capsule 300 mg PO BID 7 Days Qty: 14 0RF No Action furosemide [Lasix] 20 mg tablet 10 mg PO Q OTHER DAY Qty: 30 0RF gabapentin 800 mg tablet 800 mg PO TID Qty: 90 2RF buprenorphine-naloxone 8-2 mg tablet, sublingual 1 film SUBLINGUAL DAILY 17 Days Qty: 34 topiramate 25 mg capsule,sprinkle,ER 24hr See Rx Instructions .ROUTE .COMPLEX Qty: 90 5RF Dose Instruction: TAKE ONE CAPSULE BY MOUTH EVERY DAY AT BEDTIME FOR migraine Rx Instructions: TAKE ONE CAPSULE BY MOUTH EVERY DAY AT BEDTIME FOR migraine bupropion HCl 200 mg tablet sustained-release 12 hr See Rx Instructions .ROUTE .COMPLEX Qty: 90 3RF Dose Instruction: TAKE ONE TABLET BY MOUTH TWICE DAILY FOR DEPRESSION Rx Instructions: TAKE ONE TABLET BY MOUTH TWICE DAILY FOR DEPRESSION baclofen 10 mg tablet 10 mg PO Q8H PRN (Reason: muscle spasm) Qty: 90 2RF pantoprazole 40 mg tablet,delayed release (DR/EC) See Rx Instructions .ROUTE .COMPLEX Qty: 30 2RF Dose Instruction: TAKE ONE TABLET BY MOUTH EVERY DAY Rx Instructions: TAKE ONE TABLET BY MOUTH EVERY DAY ondansetron 4 MG tablet,disintegrating 4 mg PO Q8HP PRN (Reason: Nausea) Qty: 20 0RF Referrals Follow up/Referrals: José Miguel Loya MD [Primary Care Provider] - See instructions Activity Restrictions/Add. Instructions Additional Instructions/Restrictions: *Increase fluids. Water not Soda or Tea *Start antibiotic immediately and be sure to take as ordered for the FULL length of time although you should start to see improvement over the next 48 hours *Pyridium as needed Remember this medication will turn your urine . This is normal but it will stain what ever it gets on *You should not use Pyridium for more than 48 hours. If so , follow up with your primary physician to review urine culture and ensure that antibiotic is adequate for infection *Be SURE to follow up anytime for new or worsening symptoms with your family doctor. AND in 48 hours for urine culture results with your family doctor, if you do not have a doctor then you may call back to the [facility] for urine culture results and further treatment. We do recommend that you choose and establish care with a Primary Care Physician. ?AND follow up with them ?in 10-14 days to repeat UA to ensure infection is resolved and blood no longer present *Be sure to let your PCP know that we sent urine cultures from the [facility] so they can follow up to ensure that you area the on the correct antibiotic Call your doctor office and make appointment for 48 hours (2 days from today) ?to follow up and get the results of your urine culture and further treatment Clinical Impressions Clinical Impression: UTI (urinary tract infection) Instructions Patient Instructions: DI for Urinary Tract Infection (UTI), Cefdinir Discharge ED Provider: Ellen Carbajal [facility] [place] HPI General Stated complaint: Possible UTI Mode of Arrival: Ambulatory Source of Information: Patient Limitations: No Limitations Time Seen by Provider: 05/01/22 16:51 Description of Symptoms (Recalled from Triage Doc. by RN): PATIENT C/O FREQUENCY AND BURNING WITH URINATION X 2 DAYS HEENT Symptoms (Recalled from RN notes): No Resp Symptoms (Recalled from RN notes): No Skin Symptoms (Recalled from RN notes): No MS Symptoms (Recalled from RN notes): No Functional Status (Recalled from RN notes): WNL History of Present Illness Provider Complaint: Patient states that she thinks she has a UTI States that she has been having the feeling of urgency and frequency and burning when she is urinating States that it has continued to get worse over the last couple of days so she came in to get it checked Related Data Home Medications Medication Instructions
[2022-05-01 16:55] VITALS: BP 129/63; PULSE 91; RESP 17; TEMP 36.8; O2SAT 98
== END 2022-05-01 17:02 | disposition home or self-care (01) ==
PROVIDERS: Emergency Provider Nurse Practitioner; PCP Emergency Medicine
DX: N39.0 Urinary tract infection, site not specified (principal)
CPT/HCPCS: 81003; 87086; 87088; 87186; 99212; 99213; G0463

== ENCOUNTER → 2022-05-03 14:50 | Outpatient (CLI) | payer MEDICAID, SELFPAY ==
--- NOTE | 2022-05-03 14:57 | MM_ITS ---
PROCEDURE INFORMATION: Exam: MG Bilateral Diagnostic Breast Tomosynthesis Exam date and time: 05/03/2022 2:55 PM Age: 51 years old Clinical indication: Concern for left breast lump and follow-up to sonography from 04/08/2022, and screening. Her maternal grandmother had breast cancer. TECHNIQUE: Imaging protocol: Bilateral Diagnostic tomosynthesis and 2D mammography including computer-aided detection (CAD) when performed. Unilateral or bilateral exam. Triangular skin marker placed at area of palpable concern on the left with spot compression added. COMPARISON: 1. MG MM DIG SCREENING MAMM BI W/CAD 06/01/2021 9:51 AM 2. MG MM DIG MAMM BI DX W/CAD 12/17/2019 2:09 PM 3. MG MM DIG SCREENING MAMM BI W/CAD 11/26/2019 11:16 AM 4. MG DMSB DIG MAMM-SCREEN ANUPAM W/CAD 02/07/2017 9:42 AM FINDINGS: MAMMOGRAPHY: Breast composition: The breasts are heterogeneously dense, which may obscure small masses. Mass: Corresponding to the area of palpable concern on the left is a 1.2 cm oval mass at about 12 o'clock, middle 3rd, 4-5 cm from the nipple, unchanged since 06/01/2021. Architectural distortion: None. Calcifications: No suspicious calcifications. Asymmetric density: None. Skin thickening: None. Axillary adenopathy: None. IMPRESSION: Patient will be recalled for left sonography for further evaluation of 1.2 cm oval mass at 12 o'clock, which likely correlates with 1.3 cm cyst at 1 o'clock on 04/08/2022 sonography). Further evaluation of a palpable abnormality should be based on clinical grounds regardless of radiographic findings or lack thereof. ASSESSMENT: BI-RADS Category 0: Incomplete- Need Additional Imaging Evaluation and/or Prior Mammograms for Comparison
--- NOTE | 2022-05-03 15:29 | XR_ITS ---
FINAL REPORT CLINICAL HISTORY: wrist pain COMPARISON: 08/30/2016 FINDINGS: LEFT WRIST Three views demonstrate no acute fracture or dislocation. The visualized joint spaces are normally aligned. The joint spaces are intact. The soft tissues are unremarkable. IMPRESSION: No acute bony abnormality. Reviewed, Interpreted and Dictated by Geovanny Rawls MD Transcribed by Lily Aguirre Authenticated and [facility]
--- NOTE | 2022-05-03 15:29 | XR_ITS ---
FINAL REPORT CLINICAL HISTORY: wrist pain FINDINGS: RIGHT WRIST Three views demonstrate no acute fracture or dislocation. The visualized joint spaces are normally aligned. The joint spaces are intact. The soft tissues are unremarkable. IMPRESSION: No acute bony abnormality. Reviewed, Interpreted and Dictated by Geovanny Rawls MD Transcribed by Lily Aguirre Authenticated and [facility]
[2022-05-03 16:02] LABS: Basophils # 0.1 K/mm3 (0-0.2); Basophils % 0.8 % (0.1-2.0); Eosinophils # 0.2 K/mm3 (0.0-0.4); Eosinophils % 3.1 % (0.1-12.0); Hematocrit 40.2 % (37.0-47.0); Lymphocytes # 2.3 K/mm3 (0.7-4.5); Lymphocytes % 32.7 % (10-50); Mean Corpuscular HGB Conc 32.3 g/dL (31.8-35.4); Mean Corpuscular Hemoglobin 28.7 pg (27.0-31.2); Mean Platelet Volume 7.6 fl (7.4-10.4); Monocytes # 0.4 K/mm3 (0.1-1.0); Neutrophils # 4.1 K/mm3 (1.8-7.8); Neutrophils % 58.4 % (37.0-80.0); Platelet Count 322 K/mm3 (142-424); Red Blood Count 4.51 M/mm3 (4.20-5.40); Red Cell Distribution Width 13.5 % (11.5-17.5); White Blood Count 7.1 K/mm3 (4.8-10.8)
[2022-05-03 16:24] LABS: Alanine Aminotransferase 30 U/L (12-78); Albumin/Globulin Ratio 1.6 (1.1-1.8); Alkaline Phosphatase 81 U/L (38-126); Anion Gap 7.7 mEq/L (5-15); Aspartate Amino Transferase 33 U/L (14-36); Bilirubin,Total 0.2 mg/dl (0.2-1.3); Blood Urea Nitrogen 16 mg/dl (7-17); Calcium 9.1 mg/dl (8.4-10.2); Carbon Dioxide 34 mmol/L (22.0-30.0); Chloride 105 mmol/L (98-107); Estimated Glomerular Filt Rate 66 ml/min (>60); GFR (African American) 80 ML/MIN (>60); Globulin 2.5 g/dL (1.3-3.2); Glucose 83 mg/dl (74-100); Potassium 4.7 mmoL/L (3.5-5.1); Sodium 142 mmol/L (136-145); Total Protein,Serum 6.5 g/dl (6.3-8.2)
[2022-05-03 16:38] LABS: Free Thyroxine Index 2.6 ug/dL (5.93-13.13); T4 (Thyroxine) 8.7 ug/dl (5.53-11.0); Triiodothryronine (T3) Uptake 30 % (23.5-40.5)
[2022-05-03 16:52] LABS: Thyroid Stimulating Hormone 2.45 uIU/mL (0.465-4.68)
[2022-05-05 08:53] LABS: Estradiol 15.9 pg/mL (.); FSH 73.8 mIU/mL (.)
[2022-05-16 01:00] LABS: 1,25 Dihydroxy Vitamin D 53 pg/mL (.); 1,25-Dihydroxy, Vitamin D-2 <10 pg/mL (.); 1,25-Dihydroxy, Vitamin D-3 51 pg/mL (.)
== END ==
PROVIDERS: PCP Emergency Medicine; Visit Provider Obstetrics & Gynecology
DX: R92.8 Other abnormal and inconclusive findings on diagnostic imaging of breast (principal); M25.532 Pain in left wrist; M25.561 Pain in right knee; G93.3 Postviral and related fatigue syndromes; Z79.899 Other long term (current) drug therapy
CPT/HCPCS: 36415; 73110; 77062; 77066; 80053; 82652; 82670; 83001; 84436; 84443; 84479; 85025; G0279

== ENCOUNTER → 2022-06-10 13:59 | Outpatient (CLI) | payer MEDICAID, SELFPAY ==
--- NOTE | 2022-06-10 13:59 | US_ITS ---
PROCEDURE INFORMATION: Exam: US Left Breast, Complete Exam date and time: 06/10/2022 2:27 PM Age: 51 years old Clinical indication: Breast pain; Left; palpable abnormality in the left breast TECHNIQUE: Imaging protocol: Complete ultrasound of all four quadrants of the left breast and the retroareolar regions, including ultrasound of the axilla when performed. COMPARISON: US BREAST LT COMPLETE 04/08/2022 9:26 AM FINDINGS: Breast: Sonographic images of the left breast including the retroareolar region, all 4 quadrants and the axilla do not demonstrate any solid or cystic masses over the region of palpable concern in the left 12 o'clock axis 7 cm from the nipple. Scattered cystic changes present measuring up to approximately 1 cm in the 1 o'clock axis 5 cm from the nipple. No solid masses. No architectural distortion or acoustical shadowing. No skin thickening or axillary adenopathy. Other findings: The cyst on sonography in the 1 o'clock axis corresponds to the stable mass on mammography dated 05/03/2022 and is in close proximity to where the patient reports a palpable abnormality. IMPRESSION: Palpable abnormality in the left upper breast may correlate with a benign cyst in the 1 o'clock axis.Further evaluation of a palpable abnormality should be based on clinical grounds regardless of radiographic findings or lack thereof.Annual bilateral mammographic screening is recommended unless otherwise clinically indicated. ASSESSMENT: BI-RADS Category 2: Benign
== END ==
PROVIDERS: PCP Emergency Medicine; Visit Provider Obstetrics & Gynecology
DX: R92.8 Other abnormal and inconclusive findings on diagnostic imaging of breast (principal); N63.20 Unspecified lump in the left breast, unspecified quadrant
CPT/HCPCS: 76641

== ENCOUNTER 2022-06-20 10:20 | Emergency (ER) | payer MEDICAID, SELFPAY ==
[2022-06-20 11:00] VITALS: BP 137/88; PULSE 72; RESP 20; TEMP 36.5; O2SAT 99; BMI 33.2
--- NOTE | 2022-06-20 11:00 | EXP.UTC ---
Discharge Plan Disposition Patient Disposition: Home, Self-Care Condition: Good Prescriptions Prescriptions: New benzonatate [benzonatate] 100 mg capsule 100 mg PO TIDP PRN (Reason: Cough) Qty: 30 0RF promethazine 25 mg tablet 25 mg PO TID PRN (Reason: nausea and vomiting) Qty: 20 0RF No Action buprenorphine-naloxone 8-2 mg tablet, sublingual 1 film SUBLINGUAL DAILY 17 Days Qty: 34 gabapentin 800 mg tablet 800 mg PO TID Qty: 90 2RF pantoprazole 40 mg tablet,delayed release (DR/EC) See Rx Instructions .ROUTE .COMPLEX Qty: 30 2RF Dose Instruction: TAKE ONE TABLET BY MOUTH EVERY DAY Rx Instructions: TAKE ONE TABLET BY MOUTH EVERY DAY baclofen 10 mg tablet 10 mg PO Q8H PRN (Reason: muscle spasm) Qty: 90 2RF topiramate 25 mg capsule,sprinkle,ER 24hr See Rx Instructions .ROUTE .COMPLEX Rx Instructions: TAKE ONE CAPSULE BY MOUTH EVERY DAY AT BEDTIME FOR migraine bupropion HCl 200 mg tablet sustained-release 12 hr See Rx Instructions .ROUTE .COMPLEX Rx Instructions: TAKE ONE TABLET BY MOUTH TWICE DAILY FOR DEPRESSION Referrals Follow up/Referrals: José Miguel Loya MD [Primary Care Provider] - See instructions Activity Restrictions/Add. Instructions Additional Instructions/Restrictions: Drink plenty of fluids. Take tylenol or ibuprofen for pain or fever. Take the medications as directed. Follow up with your regular doctor. GO TO THE ER FOR ANY WORSENING SYMPTOMS Quarantine until you know the results of your covid-19 test. Notify your school or workplace of your results and follow their instructions regarding return to work/school. Clinical Impressions Clinical Impression: Acute viral syndrome Stand Alone Forms Stand Alone Forms: Work/School Release Instructions Patient Instructions: DI for Viral Syndrome Discharge ED Provider: Doc Hernandez [facility] HPI General Stated complaint: Headache, diarrhea, nausea Time Seen by Provider: 06/20/22 10:59 History of Present Illness Provider Complaint: She states that for the past 2 days she has had fatigue, body aches, nonproductive cough and headache. Related Data Home Medications Medication Instructions Recorded Confirmed buprenorphine 8 mg-naloxone 2 mg 1 film sublingual DAILY SUBSTANCE 04/24/18 06/20/22 sublingual tablet ABUSE 17 days #34 tabs bupropion HCl 200 mg tablet,12 hr See Rx Instructions .Route 06/20/22 06/20/22 sustained-release .COMPLEX Depression topiramate 25 mg capsule See Rx Instructions .Route 06/20/22 06/20/22 sprinkle,extended release 24 hr .COMPLEX migraines Previous Rx's Medication Instructions Recorded baclofen 10 mg tablet 10 mg PO Q8H PRN muscle spasm #90 05/20/22 tabs gabapentin 800 mg tablet 800 mg PO TID NERVE PAIN #90 tabs 05/20/22 pantoprazole 40 mg tablet,delayed See Rx Instructions .Route 05/20/22 release .COMPLEX #30 tabs benzonatate 100 mg capsule 100 mg PO TIDP PRN Cough #30 caps 06/20/22 promethazine 25 mg tablet 25 mg PO TID PRN nausea and 06/20/22 vomiting #20 tabs Allergies Allergy/AdvReac Type Severity Reaction Status Date / Time No Known Allergies Allergy Verified 06/20/22 11:09 [facility] Disclaimer: The information contained in this section may have been updated after the patient was seen, as this information can be updated by other users. Medical History Abnormal uterine bleeding Breast mass, left Depression Fibroid, uterine History of ovarian cyst Laceration of hand without complication, including fingers LLQ abdominal pain Neuropathy Neuropathy Perimenopausal Sting, wasp Surgical History History of endometrial ablation History of lumpectomy of left breast Social History Smoking Status: Current every day smoker tobacco type: cigarettes
[2022-06-20 12:16] VITALS: BP 137/88; PULSE 72; RESP 20; TEMP 36.5; O2SAT 99
[2022-06-20 12:20] LABS: Adenovirus,PCR Not Detected (NotDetected); Bordetella Pertussis Not Detected (NotDetected); Chlamydophila Pneumoniae, PCR Not Detected (NotDetected); Coronavirus 19, PCR Not Detected (NotDetected); Coronavirus 229E Not Detected (NotDetected); Coronavirus OC43 Not Detected (NotDetected); Coronovirus HKU1,PCR Not Detected (NotDetected); Human Metapneumovirus Not Detected (NotDetected); Influenza A, PCR Not Detected (NotDetected); Influenza AH1, 2009 Not Detected (NotDetected); Influenza AH1, PCR Not Detected (NotDetected); Influenza AH3,PCR Not Detected (NotDetected); Influenza B, PCR Not Detected (NotDetected); Mycoplasma Pneumoniae, PCR Not Detected (NotDetected); Parainfluenza 1, PCR Not Detected (NotDetected); Parainfluenza 2, PCR Not Detected (NotDetected); Parainfluenza 3, PCR Not Detected (NotDetected); Parainfluenza 4, PCR Not Detected (NotDetected); Respiratory Syncytial Virus Not Detected (NotDetected); Rhinovirus/Enterovirus Not Detected (NotDetected)
[2022-06-20 16:03] LABS: Coronavirus NL63 Detected (NotDetected)
--- NOTE | 2022-06-20 16:15 | PC.NURSE ---
Called pt left message about results
== END 2022-06-20 12:16 | disposition home or self-care (01) ==
PROVIDERS: Emergency Provider Nurse Practitioner Family; PCP Emergency Medicine
DX: R51.9 Headache, unspecified (principal); R53.83 Other fatigue; R11.0 Nausea; R19.7 Diarrhea, unspecified; B97.29 Other coronavirus as the cause of diseases classified elsewhere; F17.210 Nicotine dependence, cigarettes, uncomplicated; Z20.822 Contact with and (suspected) exposure to COVID-19
CPT/HCPCS: 87581; 87632; 87798; 99212; 99214; C9803; G0463; U0003; U0005

== ENCOUNTER 2023-01-24 20:04 | Emergency (ER) | payer MEDICAID, SELFPAY ==
[2023-01-24 20:12] VITALS: RESP 16; TEMP 36.6; O2SAT 97; BMI 30.4
--- NOTE | 2023-01-24 20:20 | PC.NURSE ---
doctor at bed side for clearance, lab notified of legal blood draw
[2023-01-24 20:21] VITALS: BP 191/109; PULSE 98; RESP 16; TEMP 36.6; O2SAT 97
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
[2023-01-24 20:53] VITALS: BP 175/100; PULSE 90; RESP 18; TEMP 36.6
--- NOTE | 2023-01-24 20:55 | PC.NURSE ---
lab in room obtaining blood work
== END 2023-01-24 21:00 | disposition home or self-care (01) ==
PROVIDERS: Emergency Provider Emergency Medicine; PCP Emergency Medicine
DX: Z00.8 Encounter for other general examination (principal)
CPT/HCPCS: 99281

== ENCOUNTER 2023-03-26 14:54 | Outpatient (RCR) | payer BC, SELFPAY | END 2023-03-26 16:00 | disposition home or self-care (01) | LOC: OT 14:54 | PROVIDERS: PCP Internal Medicine; Visit Provider Internal Medicine | DX: G56.03 Carpal tunnel syndrome, bilateral upper limbs (principal) | CPT/HCPCS: 97165 ==

== ENCOUNTER 2023-03-26 14:57 | Outpatient (RCR) | payer BC, SELFPAY | END 2023-03-26 16:00 | disposition home or self-care (01) | LOC: PT 14:57 | PROVIDERS: PCP Internal Medicine; Visit Provider Internal Medicine | DX: M54.50 Low back pain, unspecified (principal) | CPT/HCPCS: 97163 ==

== ENCOUNTER 2023-04-14 12:37 | Emergency (ER) | payer BC, SELFPAY ==
[2023-04-14 13:05] VITALS: BP 167/88; PULSE 70; RESP 18; TEMP 36.5; O2SAT 100; BMI 32.2
--- NOTE | 2023-04-14 13:25 | EXP.UTC ---
Discharge Plan Disposition Patient Disposition: Home, Self-Care Condition: Good Prescriptions Prescriptions: New azithromycin [Zithromax] 250 mg tablet 250 mg PO UD DOSE PK Qty: 6 0RF Rx Instructions: Take two (2) tablets today, then one (1) tablet days #2 thru #5 benzonatate [benzonatate] 100 mg capsule 100 mg PO TIDP PRN (Reason: Cough) Qty: 30 0RF methylprednisolone 4 mg Tablets,Dose Pack 4 mg PO DIRECTED 6 Days Qty: 21 0RF Rx Instructions: Take 1 pack as directed for 6 days No Action buprenorphine-naloxone 8-2 mg tablet, sublingual 1 film SUBLINGUAL DAILY 17 Days Qty: 34 baclofen 10 mg tablet See Rx Instructions .ROUTE .COMPLEX Qty: 90 2RF Dose Instruction: TAKE ONE TABLET BY MOUTH EVERY 8 HOURS NEEDED FOR MUSCLE SPASMS MAY CAUSE DROWSINESS Rx Instructions: TAKE ONE TABLET BY MOUTH EVERY 8 HOURS NEEDED FOR MUSCLE SPASMS MAY CAUSE DROWSINESS gabapentin 800 mg tablet 800 mg PO TID Qty: 90 2RF bupropion HCl 200 mg tablet sustained-release 12 hr See Rx Instructions .ROUTE .COMPLEX Qty: 90 5RF Dose Instruction: TAKE ONE TABLET BY MOUTH TWICE DAILY FOR DEPRESSION Rx Instructions: TAKE ONE TABLET BY MOUTH TWICE DAILY FOR DEPRESSION phentermine [Adipex-P] 37.5 mg tablet 37.5 mg PO DAILY Qty: 30 0RF Rx Instructions: must administer 30 minutes before or 1-2 hours after breakfast pantoprazole 40 mg tablet,delayed release (DR/EC) See Rx Instructions .ROUTE .COMPLEX Qty: 30 2RF Dose Instruction: TAKE ONE TABLET BY MOUTH EVERY DAY Rx Instructions: TAKE ONE TABLET BY MOUTH EVERY DAY topiramate 25 mg capsule,sprinkle,ER 24hr 10 mg PO DAILY Patient Comments: TAKE ONE CAPSULE BY MOUTH EVERY DAY AT BEDTIME FOR MIGRAINE Referrals Follow up/Referrals: Rojas Maloney DO [Primary Care Provider] - See instructions Activity Restrictions/Add. Instructions Additional Instructions/Restrictions: Drink plenty of fluids. Take tylenol or ibuprofen for pain or fever. Take the medications as directed. Follow up with your regular doctor. GO TO THE ER FOR ANY WORSENING SYMPTOMS Clinical Impressions Clinical Impression: Acute viral syndrome, Exposure to 2019 novel coronavirus Stand Alone Forms Stand Alone Forms: Work/School Release Instructions Patient Instructions: Coronavirus Disease 2019, Preventing the Spread of Coronavirus Discharge Instructions Discharge ED Provider: Doc Hernandez [facility] [place] HPI General Stated complaint: headache and chills, covid test Time Seen by Provider: 04/14/23 13:24 History of Present Illness Provider Complaint: She states that for the past 3 days she has had cough, chest congestion, sinus congestion and malaise. Related Data Home Medications Medication Instructions Recorded Confirmed buprenorphine 8 mg-naloxone 2 mg 1 film sublingual DAILY SUBSTANCE 04/24/18 04/14/23 sublingual tablet ABUSE 17 days #34 tabs topiramate 25 mg capsule 10 mg PO DAILY migraine 04/14/23 04/14/23 sprinkle,extended release 24 hr Previous Rx's Medication Instructions Recorded bupropion HCl 200 mg tablet,12 hr See Rx Instructions .Route 12/30/22 sustained-release .COMPLEX #90 tabs baclofen 10 mg tablet See Rx Instructions .Route 02/20/23 .COMPLEX #90 tabs gabapentin 800 mg tablet 800 mg PO TID NERVE PAIN #90 tabs 02/20/23 phentermine 37.5 mg tablet 37.5 mg PO DAILY #30 tabs 02/24/23 (Adipex-P) pantoprazole 40 mg tablet,delayed See Rx Instructions .Route 03/06/23 release .COMPLEX #30 tabs azithromycin 250 mg tablet 250 mg PO UD DOSE PK #6 tabs 04/14/23 (Zithromax) benzonatate 100 mg capsule 100 mg PO TIDP PRN Cough #30 caps 04/14/23 methylprednisolone 4 mg tablets in 4 mg PO DIRECTED 6 days #21 tabs 04/14/23 a dose pack Allergies Allergy/AdvReac Type Severity Reaction Status Date / Time No Known Allergies Allergy Verified 04/14/23 13:40 [facility] Disclaimer: The information contained in this section may have been updated after the patient was seen, as this information can be updated by other users. Medical History Abnormal uterine bleeding Breast mass, left Depression Fibroid, uterine History of ovarian cyst Laceration of hand without complication, including fingers LLQ abdominal pain Neuropathy Neuropathy Perimenopausal Sting, wasp Surgical History History of endometrial ablation History of lumpectomy of left breast Social History Smoking Status: Current every day smoker tobacco type: cigarettes packs per day: 1 alcohol intake: never substance use type: former substance user and opiates current occupational status: employed Travel in the last 8 weeks: None household members: children housing: house ROS Obtained: Yes All systems reviewed & no additional complaints except as documented Constitutional Constitutional: Reports poor appetite Eyes Eyes: Reports system reviewed and no additional complaints, except as documented ENT Ears, Nose, Mouth, and Throat: Reports as per HPI Cardiovascular Cardiovascular: Reports system reviewed and no additional complaints, except as documented and Denies chest pain Respiratory Respiratory: Denies shortness of breath, Reports chest congestion, Reports cough, Denies stridor and Denies wheezing Gastrointestinal Gastrointestingal: Reports system reviewed and no additional complaints, except as documented; Denies abdominal pain, diarrhea or vomiting Musculoskeletal Musculoskeletal: Reports system reviewed and no additional complaints, except as documented and Denies arthralgias Integumentary/Breasts Skin/Breast: Reports system reviewed and no additional complaints, except as documented and Denies rash Neurologic Neurologic: Denies paresthesias Allergic/Immunologic Allergic/Immunologic: Denies wheezing Physical Exam General General appearance: alert and in no apparent distress Eye Eye exam: Present normal appearance, PERRL and EOMI ENT ENT exam: Present mucous membranes moist and normal external ear exam Expanded ENT Exam External ear exam: Present normal external inspection TM/Canal exam: Bilateral TM: erythema and bulging Nose exam: Absent sinus tenderness Nasal speculum exam: Bilateral: normal Mouth exam: Present normal external inspection; Absent drooling Teeth exam: Present normal inspection Throat exam: Present tonsillar erythema and tonsillomegaly Neck Neck exam: Present normal inspection, full ROM and trachea midline; Absent tenderness, lymphadenopathy or thyromegaly Chest Chest inspection: Present normal inspection and symmetric chest wall rise; Absent tenderness or rash Respiratory Respiratory exam: Present normal lung sounds bilaterally; Absent respiratory distress, wheezes, stridor or accessory muscle use Cardiovascular Cardiovascular exam: Present regular rate, normal rhythm and normal heart sounds Abdominal Exam Abdominal exam: Present soft; Absent distention, tenderness, guarding, rebound or rigidity Extremities Exam Extremities exam: Present normal inspection, full ROM and normal capillary refill; Absent tenderness or calf tenderness Back Exam Back exam: Present normal inspection and full ROM; Absent tenderness Neurological Exam Neurological exam: Present alert and oriented X3 Psychiatric Psychiatric exam: Present normal affect and normal mood Skin Skin exam: Present warm, dry, intact and normal color Lymphatic Lymphatic Findings: no adenopathy Medical Decision Making Medical Records Medical records reviewed: No I reviewed the patient's medical records. Avi Inquiry Pt receiving controlled substance: No Lab Data Lab results reviewed: Yes I reviewed the patient's lab results.
[2023-04-14 14:00] VITALS: BP 167/88; PULSE 70; RESP 18; TEMP 36.5; O2SAT 100
== END 2023-04-14 14:00 | disposition home or self-care (01) ==
PROVIDERS: Emergency Provider Nurse Practitioner Family; PCP Internal Medicine
DX: R51.9 Headache, unspecified (principal); R05.9 Cough, unspecified; R09.81 Nasal congestion; R09.89 Other specified symptoms and signs involving the circulatory and respiratory systems; R53.81 Other malaise; F17.210 Nicotine dependence, cigarettes, uncomplicated; Z20.822 Contact with and (suspected) exposure to COVID-19
CPT/HCPCS: 87635; 99212; 99214; G0463

== ENCOUNTER 2023-04-17 11:45 | Outpatient (CLI) | payer BC, SELFPAY ==
[2023-04-17 14:49] LABS: Amphetamine/Metha Screen,Urine Negative ng/ml (<1000); Barbiturates Screen,Urine Negative ng/ml (<200); Benzodiazepines Screen,Urine Negative ng/ml (<200); Cannabinoid Screen,Urine Negative ng/ml (<50); Cocaine Screen,Urine Negative ng/ml (<300); Methadone Screen,Urine Negative ng/ml (<300); Opiate Screen,Urine Negative ng/ml (<300); Phencyclidine Screen,Urine Negative ng/ml (<25)
== END 2023-04-17 23:59 ==
LOC: LAB.DROPOF 11:46
PROVIDERS: PCP Internal Medicine; Visit Provider Internal Medicine
DX: Z79.899 Other long term (current) drug therapy (principal)
CPT/HCPCS: 80307

== ENCOUNTER 2023-05-09 07:59 | Outpatient (RCR) | payer BC, SELFPAY | END 2023-05-09 09:00 | disposition home or self-care (01) | LOC: PT 07:59 | PROVIDERS: PCP Internal Medicine; Visit Provider Internal Medicine | DX: M54.50 Low back pain, unspecified (principal); G89.29 Other chronic pain; M54.9 Dorsalgia, unspecified; G56.03 Carpal tunnel syndrome, bilateral upper limbs | CPT/HCPCS: 97163 ==

== ENCOUNTER 2023-05-16 13:34 | Emergency (ER) | payer BC, SELFPAY ==
[2023-05-16 14:20] VITALS: BP 124/76; PULSE 67; RESP 18; TEMP 36.6; O2SAT 98; BMI 30.8
--- NOTE | 2023-05-16 14:33 | EXP.UTC ---
Discharge Plan Disposition Patient Disposition: Home, Self-Care Condition: Good Prescriptions Prescriptions: New promethazine-DM 6.25-15 mg/5 mL syrup 5 ml PO Q6H PRN (Reason: Cough) Qty: 180 0RF No Action buprenorphine-naloxone 8-2 mg tablet, sublingual 1 film SUBLINGUAL DAILY 17 Days Qty: 34 baclofen 10 mg tablet See Rx Instructions .ROUTE .COMPLEX Qty: 90 2RF Dose Instruction: TAKE ONE TABLET BY MOUTH EVERY 8 HOURS NEEDED FOR MUSCLE SPASMS MAY CAUSE DROWSINESS Rx Instructions: TAKE ONE TABLET BY MOUTH EVERY 8 HOURS NEEDED FOR MUSCLE SPASMS MAY CAUSE DROWSINESS gabapentin 800 mg tablet 800 mg PO TID Qty: 90 2RF Ubrelvy 50 mg tablet 50 mg PO ONCE PRN (Reason: migraine) Qty: 6 2RF bupropion HCl 200 mg tablet sustained-release 12 hr See Rx Instructions .ROUTE .COMPLEX Qty: 90 5RF Dose Instruction: TAKE ONE TABLET BY MOUTH TWICE DAILY FOR DEPRESSION Rx Instructions: TAKE ONE TABLET BY MOUTH TWICE DAILY FOR DEPRESSION pantoprazole 40 mg tablet,delayed release (DR/EC) See Rx Instructions .ROUTE .COMPLEX Qty: 30 2RF Dose Instruction: TAKE ONE TABLET BY MOUTH EVERY DAY Rx Instructions: TAKE ONE TABLET BY MOUTH EVERY DAY Referrals Follow up/Referrals: Roajs Maloney DO [Primary Care Provider] - See instructions Activity Restrictions/Add. Instructions Additional Instructions/Restrictions: COVID and flu pending Clinical Impressions Clinical Impression: Acute viral syndrome Stand Alone Forms Stand Alone Forms: Work/School Release Instructions Patient Instructions: DI for Influenza -- Adult Discharge ED Provider: Fawn Richard [facility] [place] HPI General Stated complaint: Fever, chills Mode of Arrival: Ambulatory Source of Information: Patient Limitations: No Limitations Time Seen by Provider: 05/16/23 14:34 Description of Symptoms (Recalled from Triage Doc. by RN): Pt's symptoms are ROE, chills, and fever. HEENT Symptoms (Recalled from RN notes): Yes Resp Symptoms (Recalled from RN notes): No Skin Symptoms (Recalled from RN notes): No MS Symptoms (Recalled from RN notes): No Functional Status (Recalled from RN notes): n/a History of Present Illness Provider Complaint: Fever, headache, chills, body aches since last night Onset (ago): day(s) (1) Relieving factors: none Exacerbating factors: none Associated symptoms: cough, fever/chills, headaches and malaise Treatments prior to arrival: none Related Data Home Medications Medication Instructions Recorded Confirmed buprenorphine 8 mg-naloxone 2 mg 1 film sublingual DAILY SUBSTANCE 04/24/18 05/15/23 sublingual tablet ABUSE 17 days #34 tabs Previous Rx's Medication Instructions Recorded bupropion HCl 200 mg tablet,12 hr See Rx Instructions .Route 12/30/22 sustained-release .COMPLEX #90 tabs baclofen 10 mg tablet See Rx Instructions .Route 02/20/23 .COMPLEX #90 tabs pantoprazole 40 mg tablet,delayed See Rx Instructions .Route 03/06/23 release .COMPLEX #30 tabs gabapentin 800 mg tablet 800 mg PO TID NERVE PAIN #90 tabs 05/15/23 ubrogepant 50 mg tablet (Ubrelvy) 50 mg PO ONCE PRN migraine #6 tabs 05/15/23 promethazine-DM 6.25 mg-15 mg/5 mL 5 ml PO Q6H PRN Cough #180 mL 05/16/23 oral syrup Allergies Allergy/AdvReac Type Severity Reaction Status Date / Time No Known Allergies Allergy Verified 05/16/23 14:31 Worker's Comp Is this a Worker's Comp case?: No [facility] Disclaimer: The information contained in this section may have been updated after the patient was seen, as this information can be updated by other users. Medical History Abnormal uterine bleeding Breast mass, left Depression Fibroid, uterine History of ovarian cyst Laceration of hand without complication, including fingers LLQ abdominal pain Neuropathy Neuropathy Apparently we have not thoroughly worked this up in the lower extremities. VDRL, B12 etc. should be obtained and I do think EMG nerve conduction studies of the lower extremities would be helpful. We will schedule these. Perimenopausal Sting, wasp Surgical History History of endometrial ablation History of lumpectomy of left breast Social History Smoking Status: Current every day smoker tobacco type: cigarettes packs per day: 1 alcohol intake: never substance use type: former substance user and opiates current occupational status: employed Travel in the last 8 weeks: None household members: children housing: house ROS Obtained: Yes All systems reviewed & no additional complaints except as documented Constitutional Constitutional: Reports body ache, Reports chills, Reports fever(s), Reports headache(s), Reports poor appetite and Reports malaise Eyes Eyes: Reports system reviewed and no additional complaints, except as documented ENT Ears, Nose, Mouth, and Throat: Reports as per HPI and Reports headache(s) Cardiovascular Cardiovascular: Reports system reviewed and no additional complaints, except as documented and Denies chest pain Respiratory Respiratory: Denies shortness of breath, Reports chest congestion, Reports cough, Denies stridor and Denies wheezing Gastrointestinal Gastrointestingal: Reports system reviewed and no additional complaints, except as documented; Denies abdominal pain, diarrhea or vomiting Musculoskeletal Musculoskeletal: Reports system reviewed and no additional complaints, except as documented and Denies arthralgias Integumentary/Breasts Skin/Breast: Reports system reviewed and no additional complaints, except as documented and Denies rash Neurologic Neurologic: Reports headache(s) and Denies paresthesias Allergic/Immunologic Allergic/Immunologic: Denies wheezing Physical Exam General General appearance: alert and in no apparent distress Head Head exam: atraumatic, normocephalic and normal inspection Eye Eye exam: Present normal appearance, PERRL and EOMI ENT ENT exam: Present normal exam, normal oropharynx, mucous membranes moist, TM's normal bilaterally and normal external ear exam Neck Neck exam: Present normal inspection, full ROM and trachea midline; Absent meningismus or lymphadenopathy Chest Chest inspection: Present normal inspection and symmetric chest wall rise; Absent tenderness Respiratory Respiratory exam: Present normal lung sounds bilaterally; Absent respiratory distress Cardiovascular Cardiovascular exam: Present regular rate and normal rhythm; Absent JVD Abdominal Exam Abdominal exam: Present soft and normal bowel sounds; Absent distention, tenderness or guarding Extremities Exam Extremities exam: Present normal inspection, full ROM and normal capillary refill; Absent calf tenderness Back Exam Back exam: Present normal inspection; Absent tenderness Neurological Exam Neurological exam: Present alert and oriented X3 Psychiatric Psychiatric exam: Present normal affect and normal mood Skin Skin exam: Present warm, dry, intact and normal color Lymphatic Lymphatic Findings: no adenopathy Medical Decision Making Avi Inquiry Pt receiving controlled substance: No Vital Signs: 05/16/23 14:20 Temperature 97.9 F Temperature Source Oral Pulse Rate [Right Radial] 67 Respiratory Rate 18 Blood Pressure [Right Arm] 124/76 Blood Pressure Mean [Right Arm] 92 Blood Pressure Source [Right Arm] Automatic Cuff Blood Pressure Position [Right Arm] Sitting 02 Sat by Pulse Oximetry 98 Oxygen Delivery Method Room Air Lab Data Lab results reviewed: Yes I reviewed the patient's lab results. Orders (Tests/Meds): ORDERS Category Date Time Status Rapid PCR Covid and Flu A/B Stat Lab 05/16/23 14:31 Ordered
[2023-05-16 14:58] LABS: Coronavirus 19, PCR Not Detected (NotDetected); Influenza A, PCR Not Detected (NotDetected); Influenza B, PCR Not Detected (NotDetected)
[2023-05-16 15:03] VITALS: BP 124/76; PULSE 67; RESP 18; TEMP 36.6; O2SAT 98
== END 2023-05-16 15:03 | disposition home or self-care (01) ==
PROVIDERS: Emergency Provider Physician Assistant; PCP Internal Medicine
DX: R05.9 Cough, unspecified (principal); R51.9 Headache, unspecified; R50.9 Fever, unspecified; B34.9 Viral infection, unspecified; F17.210 Nicotine dependence, cigarettes, uncomplicated
CPT/HCPCS: 87636; 99212; 99214; G0463

== ENCOUNTER 2023-06-04 18:13 | Emergency (ER) | payer BC, SELFPAY ==
--- NOTE | 2023-06-04 18:18 | XR_ITS ---
PROCEDURE INFORMATION: Exam: XR Right Shoulder Exam date and time: 06/04/2023 6:20 PM Age: 52 years old Clinical indication: Pain; Shoulder; Right TECHNIQUE: Imaging protocol: Radiologic exam of the right shoulder. Views: 2 or more views. COMPARISON: No relevant prior studies available. FINDINGS: Bones/joints: No acute fracture or malalignment. Mild acromioclavicular joint arthrosis. Lungs: Small right apical calcified granuloma. Soft tissues: Normal. IMPRESSION: No acute osseous findings.
[2023-06-04 19:00] VITALS: BP 141/81; PULSE 84; RESP 19; TEMP 36.8; O2SAT 100; BMI 15.8
--- NOTE | 2023-06-04 19:43 | ED_ITS ---
Discharge Plan Disposition Patient Disposition: Home, Self-Care Condition: Good Prescriptions Prescriptions: New ibuprofen [ibuprofen] 600 mg tablet 600 mg PO Q6HP PRN (Reason: Moderate Pain) Qty: 20 0RF methylprednisolone [Medrol (Wade)] 4 mg tablets,dose pack See Rx Instructions .Route .COMPLEX 6 Days Qty: 21 0RF Rx Instructions: taper pack; No Action buprenorphine-naloxone 8-2 mg tablet, sublingual 1 film SUBLINGUAL DAILY 17 Days Qty: 34 baclofen 10 mg tablet See Rx Instructions .ROUTE .COMPLEX Qty: 90 2RF Dose Instruction: TAKE ONE TABLET BY MOUTH EVERY 8 HOURS NEEDED FOR MUSCLE SPASMS MAY CAUSE DROWSINESS Rx Instructions: TAKE ONE TABLET BY MOUTH EVERY 8 HOURS NEEDED FOR MUSCLE SPASMS MAY CAUSE DROWSINESS gabapentin 800 mg tablet 800 mg PO TID Qty: 90 2RF Ubrelvy 50 mg tablet 50 mg PO ONCE PRN (Reason: migraine) Qty: 6 2RF bupropion HCl 200 mg tablet sustained-release 12 hr See Rx Instructions .ROUTE .COMPLEX Qty: 90 5RF Dose Instruction: TAKE ONE TABLET BY MOUTH TWICE DAILY FOR DEPRESSION Rx Instructions: TAKE ONE TABLET BY MOUTH TWICE DAILY FOR DEPRESSION pantoprazole 40 mg tablet,delayed release (DR/EC) See Rx Instructions .ROUTE .COMPLEX Qty: 30 2RF Dose Instruction: TAKE ONE TABLET BY MOUTH EVERY DAY Rx Instructions: TAKE ONE TABLET BY MOUTH EVERY DAY Referrals Follow up/Referrals: Jose Louise DO [Staff Physician] - See instructions Rojas Maloney DO [Primary Care Provider] - See instructions Activity Restrictions/Add. Instructions Additional Instructions/Restrictions: Start Ibuprofen tomorrow for pain Wear sling for the next few days and make appointment with your Family Doctor or Orthopedics for further evaluation and testing Take Medrol pack as prescribed Return if needed Clinical Impressions Clinical Impression: Right shoulder pain Qualifiers: Chronicity: unspecified Qualified Code(s): M25.511 - Pain in right shoulder Instructions Patient Instructions: How to Use a Sling, DI for Shoulder Pain, Ibuprofen Discharge ED Provider: Ellen Carbajal [facility] [place] HPI General Stated complaint: right shoulder hurts and fingers hurt Mode of Arrival: Ambulatory Source of Information: Patient Limitations: No Limitations Time Seen by Provider: 06/04/23 19:43 Description of Symptoms (Recalled from Triage Doc. by RN): Pt has right shoulder pain that is radiating down to the elbow. 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 but this evening it was bothering her worse so she came in to get it checked Related Data Home Medications Medication Instructions Recorded Confirmed buprenorphine 8 mg-naloxone 2 mg 1 film sublingual DAILY SUBSTANCE 04/24/18 06/04/23 sublingual tablet ABUSE 17 days #34 tabs Previous Rx's Medication Instructions Recorded bupropion HCl 200 mg tablet,12 hr See Rx Instructions .Route 12/30/22 sustained-release .COMPLEX #90 tabs baclofen 10 mg tablet See Rx Instructions .Route 02/20/23 .COMPLEX #90 tabs pantoprazole 40 mg tablet,delayed See Rx Instructions .Route 03/06/23 release .COMPLEX #30 tabs gabapentin 800 mg tablet 800 mg PO TID NERVE PAIN #90 tabs 05/15/23 ubrogepant 50 mg tablet (Ubrelvy) 50 mg PO ONCE PRN migraine #6 tabs 05/15/23 ibuprofen 600 mg tablet 600 mg PO Q6HP PRN Moderate Pain 06/04/23 #20 tabs methylprednisolone 4 mg tablets in See Rx Instructions .Route 06/04/23 a dose pack (Medrol (Wade)) .COMPLEX 6 days #21 tabs Allergies Allergy/AdvReac Type Severity Reaction Status Date / Time No Known Allergies Allergy Verified 06/04/23 19:24 Worker's Comp Is this a Worker's Comp case?: No [facility] Disclaimer: The information contained in this section may have been updated after the patient was seen, as this information can be updated by other users. Medical History Abnormal uterine bleeding Breast mass, left Depression Fibroid, uterine History of ovarian cyst Laceration of hand without complication, including fingers LLQ abdominal pain Neuropathy Neuropathy Apparently we have not thoroughly worked this up in the lower extremities. VDRL, B12 etc. should be obtained and I do think EMG nerve conduction studies of the lower extremities would be helpful. We will schedule these. Perimenopausal Sting, wasp Surgical History History of endometrial ablation History of lumpectomy of left breast Social History Smoking Status: Current every day smoker tobacco type: cigarettes packs per day: 1 alcohol intake: never substance use type: former substance user and opiates current occupational status: employed Travel in the last 8 weeks: None household members: children housing: house ROS Obtained: Yes All systems reviewed & no additional complaints except as documented and Yes Systems reviewed as appropriate & no additional complaints except as documented Constitutional Constitutional: Reports system reviewed and no additional complaints, except as documented and Reports as per HPI ENT Ears, Nose, Mouth, and Throat: Reports system reviewed and no additional complaints, except as documented and Reports as per HPI Cardiovascular Cardiovascular: Reports system reviewed and no additional complaints, except as documented and Reports as per HPI Musculoskeletal Musculoskeletal: Reports system reviewed and no additional complaints, except as documented, Reports as per HPI and Reports other Comments: Pain in right shoulder worse with movement and when she raises her arm Physical Exam General General appearance: alert and in no apparent distress ENT ENT exam: Present mucous membranes moist Respiratory Respiratory exam: Present normal lung sounds bilaterally; Absent respiratory distress or wheezes Cardiovascular Cardiovascular exam: Present regular rate, normal rhythm and normal heart sounds Expanded Upper Extremity Exam Right: Shoulder exam: Present tenderness and other (reports pain worse with movement and raising arm Denies known injury reports pain in shoulder joint'); Absent swelling, ecchymosis, deformity, dislocation or erythema Vascular exam: Normal capillary refill and radial pulse Neurological Exam Neurological exam: Present alert, oriented X3 and normal gait Medical Decision Making Avi Inquiry Pt receiving controlled substance: No Avi was queried for this patient: No Vital Signs: 06/04/23 19:00 Temperature 98.2 F Temperature Source Oral Pulse Rate [Right Radial] 84 Respiratory Rate 19 Blood Pressure [Right Arm] 141/81 H Blood Pressure Mean [Right Arm] 101 Blood Pressure Source [Right Arm] Automatic Cuff Blood Pressure Position [Right Arm] Sitting 02 Sat by Pulse Oximetry 100 Oxygen Delivery Method Room Air Orders (Tests/Meds): ORDERS Category Date Time Status XR shoulder RT min 2V Stat Exams 06/04/23 18:18 Completed Radiology Data #1: Image(s): Shoulder Image Reviewed: Yes I have reviewed radiologist's interpretation FINDINGS: Bones/joints: No acute fracture or malalignment. Mild acromioclavicular joint arthrosis. Lungs: Small right apical calcified granuloma. Soft tissues: Normal. IMPRESSION: No acute osseous findings.
[2023-06-04] MEDS: KETOROLAC 60MG/2ML VIAL 60 MG IM (20:00)
[2023-06-04 20:29] VITALS: BP 141/87; PULSE 84; RESP 19; TEMP 36.8; O2SAT 100
== END 2023-06-04 20:29 | disposition home or self-care (01) ==
PROVIDERS: Emergency Provider Nurse Practitioner; PCP Internal Medicine
DX: M25.511 Pain in right shoulder (principal); F17.210 Nicotine dependence, cigarettes, uncomplicated; G62.9 Polyneuropathy, unspecified
CPT/HCPCS: 73030; 96372; 99212; 99214; G0463

== ENCOUNTER 2023-09-22 18:00 | Outpatient (CLI) | payer BC, SELFPAY ==
[2023-09-22 18:19] LABS: Basophils % 0.5 % (0.1-2.0); Eosinophils # 0.1 K/mm3 (0.0-0.4); Eosinophils % 1.7 % (0.1-12.0); Hematocrit 41.8 % (37.0-47.0); Hemoglobin 13.6 g/dL (12.2-16.2); Lymphocytes # 2.3 K/mm3 (0.7-4.5); Lymphocytes % 36.5 % (10-50); Mean Corpuscular HGB Conc 32.5 g/dL (31.8-35.4); Mean Corpuscular Volume 89.4 fl (81-99); Mean Platelet Volume 7.8 fl (7.4-10.4); Monocytes # 0.3 K/mm3 (0.1-1.0); Monocytes % 4.9 % (1.7-9.3); Neutrophils # 3.5 K/mm3 (1.8-7.8); Neutrophils % 56.3 % (37.0-80.0); Platelet Count 284 K/mm3 (142-424); Red Blood Count 4.68 M/mm3 (4.20-5.40); Red Cell Distribution Width 13.8 % (11.5-17.5); White Blood Count 6.2 K/mm3 (4.8-10.8)
[2023-09-22 18:51] LABS: Alanine Aminotransferase 24 U/L (12-78); Albumin Level 4.2 g/dl (3.5-5.0); Albumin/Globulin Ratio 1.6 (1.1-1.8); Alkaline Phosphatase 89 U/L (38-126); Anion Gap 10.8 mEq/L (5-15); Aspartate Amino Transferase 32 U/L (14-36); Bilirubin,Total 0.4 mg/dl (0.2-1.3); Blood Urea Nitrogen 20 mg/dl (7-17); Calcium 9.6 mg/dl (8.4-10.2); Carbon Dioxide 30 mmol/L (22.0-30.0); Chloride 105 mmol/L (98-107); Cholesterol 158 mg/dl (140-200); Estimated Glomerular Filt Rate 58 ml/min (>60); GFR (African American) 71 ML/MIN (>60); Globulin 2.7 g/dL (1.3-3.2); Glucose 78 mg/dl (74-100); HDL Cholesterol 53 mg/dl (40-60); Potassium 3.8 mmoL/L (3.5-5.1); Sodium 142 mmol/L (136-145); Total Protein,Serum 6.9 g/dl (6.3-8.2); Triglycerides 106 mg/dl (30-150); VLDL Cholesterol 21 mg/dL (0-40)
[2023-09-22 19:03] LABS: Direct LDL Cholesterol 77.37 mg/dL (100-129); Hemoglobin A1C 5.3 % (4.0-6.0)
[2023-09-22 19:08] LABS: 25-OH Vitamin D, Total 40.4 ng/mL (30-100)
[2023-09-22 19:22] LABS: Thyroid Stimulating Hormone 1.71 uIU/mL (0.465-4.68)
== END 2023-09-22 23:59 | disposition home or self-care (01) ==
LOC: LAB.DROPOF 09-23 08:24
PROVIDERS: Visit Provider Family Medicine
DX: G43.909 Migraine, unspecified, not intractable, without status migrainosus (principal); Z68.30 Body mass index [BMI] 30.0-30.9, adult; E66.9 Obesity, unspecified
CPT/HCPCS: 80050; 80053; 80061; 82306; 83036; 84443; 85025

== ENCOUNTER 2024-01-21 17:10 | Outpatient (CLI) | payer BC, SELFPAY ==
--- NOTE | 2024-01-21 17:16 | MM_ITS ---
PROCEDURE INFORMATION: Exam: MG Bilateral Screening 3D Mammography Exam date and time: 01/21/2024 4:59 PM Age: 53 years old Clinical indication: Screening. Her maternal grandmother had breast cancer. TECHNIQUE: Imaging protocol: Bilateral Screening tomosynthesis and 2D mammography including computer-aided detection (CAD) when performed. COMPARISON: 1. MG MM DIG MAMM BI DX W/CAD 05/03/2022 2:55 PM 2. MG MM DIG SCREENING MAMM BI W/CAD 06/01/2021 9:51 AM 3. MG MM DIG MAMM BI DX W/CAD 12/17/2019 2:09 PM 4. MG MM DIG SCREENING MAMM BI W/CAD 11/26/2019 11:16 AM FINDINGS: MAMMOGRAPHY: Breast composition: The breasts are heterogeneously dense, which may obscure small masses. Mass: Left breast mass at 12 o'clock is much smaller in the interval, measuring up to 0.7 cm. No suspicious mass. Architectural distortion: None. Calcifications: No suspicious calcifications. Asymmetric density: None. Skin thickening: None. Axillary adenopathy: None. IMPRESSION: No mammographic evidence of malignancy. Annual screening is recommended unless otherwise clinically indicated. ASSESSMENT: BI-RADS Category 2: Benign.
== END 2024-01-21 23:59 | disposition home or self-care (01) ==
LOC: RAD 17:11
PROVIDERS: PCP Family Medicine; Visit Provider Family Medicine
DX: Z12.31 Encounter for screening mammogram for malignant neoplasm of breast (principal)
CPT/HCPCS: 77063; 77067

== ENCOUNTER 2024-10-11 16:19 | Outpatient (CLI) | payer BC, SELFPAY ==
[2024-10-11 19:36] LABS: Hematocrit 36.2 % (37.0-47.0); Hemoglobin 11.8 g/dL (12.2-16.2); Immature Granulocytes % 0.2 %; Mean Corpuscular HGB Conc 32.6 g/dL (31.8-35.4); Mean Corpuscular Hemoglobin 28.0 pg (27.0-31.2); Mean Corpuscular Volume 85.8 fl (81-99); Nucleated Red Blood Cells % 0 %; Platelet Count 257 K/mm3 (142-424); Red Blood Count 4.22 M/mm3 (4.20-5.40); Red Cell Distribution Width-SD 42.5 fL; White Blood Count 6.6 K/mm3 (4.8-10.8)
[2024-10-11 20:05] LABS: Alanine Aminotransferase 27 U/L (12-78); Albumin Level 4.1 g/dl (3.5-5.0); Albumin/Globulin Ratio 1.8 (1.1-1.8); Alkaline Phosphatase 81 U/L (38-126); Anion Gap 14.9 mEq/L (5-15); Aspartate Amino Transferase 32 U/L (14-36); Bilirubin,Total 0.2 mg/dl (0.2-1.3); Blood Urea Nitrogen 13 mg/dl (7-17); Calcium 8.8 mg/dl (8.4-10.2); Carbon Dioxide 28 mmol/L (22.0-30.0); Chloride 101 mmol/L (98-107); Creatinine,Serum 0.80 mg/dl (0.52-1.04); Estimated Glomerular Filt Rate 75 ml/min (>60); GFR (African American) 91 ML/MIN (>60); Globulin 2.3 g/dL (1.3-3.2); Glucose 95 mg/dl (74-100); Potassium 3.9 mmoL/L (3.5-5.1); Sodium 140 mmol/L (136-145); Total Protein,Serum 6.4 g/dl (6.3-8.2)
[2024-10-11 20:11] LABS: C-Reactive Protein 8.2 mg/L (0-4)
[2024-10-11 20:36] LABS: Thyroid Stimulating Hormone 2.42 uIU/mL (0.465-4.68)
== END 2024-10-11 23:59 | disposition home or self-care (01) ==
LOC: LAB.DROPOF 10-12 07:32
PROVIDERS: PCP Family Medicine; Visit Provider Family Medicine
DX: G43.909 Migraine, unspecified, not intractable, without status migrainosus (principal); G62.9 Polyneuropathy, unspecified; E66.811 Obesity, class 1; M25.50 Pain in unspecified joint; M79.644 Pain in right finger(s); M79.645 Pain in left finger(s); G93.31 Postviral fatigue syndrome
CPT/HCPCS: 80053; 84443; 85025; 86140

== ENCOUNTER 2024-12-20 09:11 | Emergency (ER) | payer BC, SELFPAY ==
[2024-12-20 09:22] VITALS: BP 163/74; PULSE 88; RESP 16; TEMP 36.6; O2SAT 98; BMI 32.2
--- NOTE | 2024-12-20 09:58 | ED_ITS ---
Discharge Plan Disposition Chief Complaint: Back Pain/Injury Prescriptions Prescriptions: No Action buprenorphine-naloxone 8-2 mg tablet, sublingual 1 tab SUBLINGUAL DAILY 17 Days Qty: 17 Ubrelvy 50 mg tablet 50 mg PO ONCE PRN (Reason: migraine) Qty: 6 2RF gabapentin 800 mg tablet 800 mg PO BID Qty: 60 2RF diclofenac sodium [Arthritis Pain (diclofenac)] 1 % gel 2 g topical QID Qty: 100 2RF Rx Instructions: apply to single elbow, wrist or hand; for hand includes palm/fingers/back of hand baclofen 10 mg tablet See Rx Instructions .ROUTE .COMPLEX Qty: 90 2RF Dose Instruction: TAKE 1 TABLET BY MOUTH EVERY 8 HOURS NEEDED FOR MUSCLE SPASMS Rx Instructions: TAKE 1 TABLET BY MOUTH EVERY 8 HOURS NEEDED FOR MUSCLE SPASMS pantoprazole 40 mg tablet,delayed release (DR/EC) See Rx Instructions .ROUTE .COMPLEX Qty: 90 2RF Dose Instruction: TAKE ONE TABLET BY MOUTH ONCE A DAY Rx Instructions: TAKE ONE TABLET BY MOUTH ONCE A DAY bupropion HCl 200 mg tablet sustained-release 12 hr See Rx Instructions .ROUTE .COMPLEX Qty: 90 2RF Dose Instruction: TAKE 1 TABLET BY MOUTH TWICE DAILY FOR DEPRESSION Rx Instructions: TAKE 1 TABLET BY MOUTH TWICE DAILY FOR DEPRESSION Referrals Follow up/Referrals: hCeryl Yuen APRN [Primary Care Provider, Family Practice] - See instructions Instructions Patient Instructions: DI for Low Back Pain Print Language Print Language: Turkmen Discharge ED Provider: Aundrea Krishna General Adult HPI General Chief complaint: Back Pain/Injury Stated complaint: Back pain, no accident Time Seen by Provider: 12/20/24 09:58 Mode of Arrival: Ambulatory Source of Information: Patient Description of Symptoms (Recalled from ER Triage Doc. by RN): Reports waking up to severe right lower back pain. States that she has had a history of back problems in the past. Denies any injury. Related Data Home Medications ?Medication ?Instructions ?Recorded ?Confirmed buprenorphine 8 mg-naloxone 2 mg 1 tab sublingual HASEEB Y SUBSTANCE 10/11/24 10/11/24 sublingual tablet ABUSE 17 days #17 tabs Previous Rx's ?Medication ?Instructions ?Recorded ubrogepant 50 mg tablet (Ubrelvy) 50 mg PO ONCE PRN mi graine #6 tabs 09/22/23 gabapentin 800 mg tablet 800 mg PO BID NERVE PAIN #60 tabs 10/11/24 diclofenac sodium 1 % topical gel 2 g topical QID #100 grams 10/13/24 (Arthritis Pain (diclofenac)) baclofen 10 mg tablet See Rx Instructions .Route 0 10/25/24 .COMPLEX #90 tabs pantoprazole 40 mg tablet,delayed See Rx Instructions .Route 10/25/24 release .COMPLEX #90 tabs bupropion HCl 200 mg tablet,12 hr See Rx Instructions .Route 12/14/24 sustained-release .COMPLEX #90 tabs Allergies Allergy/AdvReac Type Severity Reaction Status Date / Time No Known Allergies Allergy Verified 10/11/24 15:58 [facility] Disclaimer: The information contained in this section may have been updated after the patient was seen, as this information can be updated by other users. Medical History LLQ abdominal pain History of ovarian cyst Acute radicular low back pain Torticollis Acute viral syndrome UTI (urinary tract infection) Physically able to work Medical clearance for incarceration Exposure to 2019 novel coronavirus Acute viral syndrome Acute viral syndrome Right shoulder pain Fibroid, uterine Depression Breast mass, left Abnormal uterine bleeding Neuropathy Perimenopausal Neuropathy Laceration of hand without complication, including fingers Sting, wasp Surgical History History of endometrial ablation History of lumpectomy of left breast Social History Smoking Status: Current every day smoker tobacco type: cigarettes packs per day: 1 alcohol intake: never substance use type: former substance user and opiates current occupational status: employed Travel in the last 8 weeks?: None household members: children housing: house Have you lived/traveled outside US in past 30 days?: No Contact w/someone who lives/traveled outside US past 30 days?: No Exposure to someone with infectious disease in past 14 days?: No Do you have a fever (greater than 100.4 F or 38 C)?: No Have you tested positive for COVID-19?: No Exposed to someone with COVID-19 in past 14 days?: No Do you have a sore throat?: No Do you have a cough?: No Do you have any weakness?: No Do you have any diarrhea?: No Are you experiencing any unusual bleeding?: No Do you have any muscle aches/pain?: No Do you have any abdominal pain?: No Are you experiencing loss of taste or smell?: No Other Medical History Have you received the Flu Vaccine for this season: Yes Have you received the Pneumonia Vaccine: Yes Medical Decision Making Medical Records Screening: Per USPSTF and CDC recommendations, given the prevalence of disease in our region, it is our hospital?s policy to screen for HIV and viral Hepatitis for all patients aged 18 and over and those with ongoing risk factors. Vital Signs: 12/20/24 09:22 Temperature 97.9 F Temperature Source Oral Pulse Rate [Radial] 88 Respiratory Rate 16 Blood Pressure [Left Arm] 163/74 H Blood Pressure Mean [Left Arm] 103 Blood Pressure Source [Left Arm] Automatic Cuff Blood Pressure Position [Left Arm] Sitting 02 Sat by Pulse Oximetry 98 Oxygen Delivery Method Room Air Orders (Tests/Meds): ORDERS Category Date Time Status HIV Combo Stat Lab 12/20/24 09:25 Ordered Hepatitis C Ab Qual. W/ RFX Stat Lab 12/20/24 09:25 Ordered
[2024-12-20] MEDS: ORPHENADRINE CITRATE 60MG/2ML VIAL 60 MG IM (10:15)
[2024-12-20] MEDS: KETOROLAC 30MG/ML VIAL 30 MG IM (10:16)
--- NOTE | 2024-12-20 10:41 | ED_ITS ---
<Statement entered by Aundrea Krishna MD - 12/20/24 14:41> I was consulted by the SHIRLEY, and we discussed the complexity of the problems being addressed. I approved the treatment and management plan for this patient's care in the emergency department, thus performing a substantive portion of the medical decision making. Aundrea Krishna MD, DANIEL, FACEP Discharge Plan Disposition Patient Disposition: Home, Self-Care Condition: Good Prescriptions Prescriptions: New cyclobenzaprine 10 mg tablet 10 mg PO TID PRN (Reason: muscle spasm) Qty: 15 0RF ibuprofen 600 mg tablet 600 mg PO TID PRN (Reason: pain) Qty: 15 0RF No Action buprenorphine-naloxone 8-2 mg tablet, sublingual 1 tab SUBLINGUAL DAILY 17 Days Qty: 17 Ubrelvy 50 mg tablet 50 mg PO ONCE PRN (Reason: migraine) Qty: 6 2RF gabapentin 800 mg tablet 800 mg PO BID Qty: 60 2RF diclofenac sodium [Arthritis Pain (diclofenac)] 1 % gel 2 g topical QID Qty: 100 2RF Rx Instructions: apply to single elbow, wrist or hand; for hand includes palm/fingers/back of hand baclofen 10 mg tablet See Rx Instructions .ROUTE .COMPLEX Qty: 90 2RF Dose Instruction: TAKE 1 TABLET BY MOUTH EVERY 8 HOURS NEEDED FOR MUSCLE SPASMS Rx Instructions: TAKE 1 TABLET BY MOUTH EVERY 8 HOURS NEEDED FOR MUSCLE SPASMS pantoprazole 40 mg tablet,delayed release (DR/EC) See Rx Instructions .ROUTE .COMPLEX Qty: 90 2RF Dose Instruction: TAKE ONE TABLET BY MOUTH ONCE A DAY Rx Instructions: TAKE ONE TABLET BY MOUTH ONCE A DAY bupropion HCl 200 mg tablet sustained-release 12 hr See Rx Instructions .ROUTE .COMPLEX Qty: 90 2RF Dose Instruction: TAKE 1 TABLET BY MOUTH TWICE DAILY FOR DEPRESSION Rx Instructions: TAKE 1 TABLET BY MOUTH TWICE DAILY FOR DEPRESSION Referrals Follow up/Referrals: Cheryl Yuen APRN [Primary Care Provider, Family Practice] - See instructions Clinical Impressions Clinical Impression: Chronic low back pain Instructions Patient Instructions: DI for Low Back Pain Print Language Print Language: Vietnamese Discharge ED Provider: Aundrea Krishna General Adult HPI General Chief complaint: Back Pain/Injury Stated complaint: Back pain, no accident Time Seen by Provider: 12/20/24 09:58 Mode of Arrival: Ambulatory Source of Information: Patient Description of Symptoms (Recalled from ER Triage Doc. by RN): Reports waking up to severe right lower back pain. States that she has had a history of back problems in the past. Denies any injury. History of Present Illness HPI narrative: 54-year-old female presents emergency department complaints of acute exacerbation of chronic low back pain. She denies any recent injury to the area. She reports she takes baclofen and gabapentin daily for pain control of her low back pain. She denies saddle anesthesia as well as bowel or bladder incontinence. Related Data Home Medications ?Medication ?Instructions ?Recorded ?Confirmed buprenorphine 8 mg-naloxone 2 mg 1 tab sublingual HASEEB Y SUBSTANCE 10/11/24 10/11/24 sublingual tablet ABUSE 17 days #17 tabs Previous Rx's ?Medication ?Instructions ?Recorded ubrogepant 50 mg tablet (Ubrelvy) 50 mg PO ONCE PRN mi graine #6 tabs 09/22/23 gabapentin 800 mg tablet 800 mg PO BID NERVE PAIN #60 tabs 10/11/24 diclofenac sodium 1 % topical gel 2 g topical QID #100 grams 10/13/24 (Arthritis Pain (diclofenac)) baclofen 10 mg tablet See Rx Instructions .Route 0 10/25/24 .COMPLEX #90 tabs pantoprazole 40 mg tablet,delayed See Rx Instructions .Route 10/25/24 release .COMPLEX #90 tabs bupropion HCl 200 mg tablet,12 hr See Rx Instructions .Route 12/14/24 sustained-release .COMPLEX #90 tabs cyclobenzaprine 10 mg tablet 10 mg PO TID PRN muscle s pasm #15 12/20/24 tabs ibuprofen 600 mg tablet 600 mg PO TID PRN pain #15 t abs 12/20/24 Allergies Allergy/AdvReac Type Severity Reaction Status Date / Time No Known Allergies Allergy Verified 10/11/24 15:58 [facility] Disclaimer: The information contained in this section may have been updated after the patient was seen, as this information can be updated by other users. Medical History LLQ abdominal pain History of ovarian cyst Acute radicular low back pain Torticollis Acute viral syndrome UTI (urinary tract infection) Physically able to work Medical clearance for incarceration Exposure to 2019 novel coronavirus Acute viral syndrome Acute viral syndrome Right shoulder pain Fibroid, uterine Depression Breast mass, left Abnormal uterine bleeding Neuropathy Perimenopausal Neuropathy Laceration of hand without complication, including fingers Sting, wasp Surgical History History of endometrial ablation History of lumpectomy of left breast Social History Smoking Status: Current every day smoker tobacco type: cigarettes packs per day: 1 alcohol intake: never substance use type: former substance user and opiates current occupational status: employed Travel in the last 8 weeks?: None household members: children housing: house Have you lived/traveled outside US in past 30 days?: No Contact w/someone who lives/traveled outside US past 30 days?: No Exposure to someone with infectious disease in past 14 days?: No Do you have a fever (greater than 100.4 F or 38 C)?: No Have you tested positive for COVID-19?: No Exposed to someone with COVID-19 in past 14 days?: No Do you have a sore throat?: No Do you have a cough?: No Do you have any weakness?: No Do you have any diarrhea?: No Are you experiencing any unusual bleeding?: No Do you have any muscle aches/pain?: No Do you have any abdominal pain?: No Are you experiencing loss of taste or smell?: No Other Medical History Have you received the Flu Vaccine for this season: Yes Have you received the Pneumonia Vaccine: Yes ROS Obtained: Yes other Musculoskeletal Musculoskeletal: Reports back pain Physical Exam Narrative Physical exam: General: Awake, aware, in no acute distress HEENT: Normocephalic, no evidence of trauma CV: RRR, no murmurs, rubs, or gallops Pulm: CTA bilaterally with no rhonchi, rales, wheezes ABD: Nontender, no swelling, guarding, or rebound tenderness Psych, appropriate mood and affect Musculoskeletal: Patient with 2+ patellar reflexes bilaterally. Stations intact in all extremities as well as 2+ pulses and 5 out of 5 strength. Patient reports tenderness on palpation of lower lumbar area that radiates off to her right hip and buttock area. General General appearance: alert Respiratory Respiratory exam: Present normal lung sounds bilaterally Cardiovascular Cardiovascular exam: Present regular rate Neurological Exam Neurological exam: Present alert Medical Decision Making Medical Records Screening: Per USPSTF and CDC recommendations, given the prevalence of disease in our region, it is our hospital?s policy to screen for HIV and viral Hepatitis for all patients aged 18 and over and those with ongoing risk factors. Avi Inquiry Pt receiving controlled substance: No Vital Signs: 12/20/24 09:22 Temperature 97.9 F Temperature Source Oral Pulse Rate [Radial] 88 Respiratory Rate 16 Blood Pressure [Left Arm] 163/74 H Blood Pressure Mean [Left Arm] 103 Blood Pressure Source [Left Arm] Automatic Cuff Blood Pressure Position [Left Arm] Sitting 02 Sat by Pulse Oximetry 98 Oxygen Delivery Method Room Air Orders (Tests/Meds): ED MEDICATIONS Discontinued Medications Generic Name Dose Route Start Last Admin Trade Name Freq PRN Reason Stop Dose Admin Ketorolac Tromethamine 30 mg 12/20/24 10:07 12/20/24 10:16 Ketorolac 30mg/Ml Vial IM 12/20/24 10:08 30 mg ONCE ONE Administration Orphenadrine Citrate 60 mg 12/20/24 10:07 12/20/24 10:15 Orphenadrine Citrate 60mg/2ml Vial IM 12/20/24 10:08 60 mg ONCE ONE Administration ORDERS Category Date Time Status HIV Combo Stat Lab 12/20/24 09:25 Ordered Hepatitis C Ab Qual. W/ RFX Stat Lab 12/20/24 09:25 Ordered Medical Decision Narrative: Initial impression of presenting illness: 54-year-old female with a history of chronic back pain presents emergency department with acute exacerbation. He denies any recent injury to the area. She reports she takes baclofen as well as gabapentin daily for pain control. Patient reports she is also on Suboxone. She denies saddle anesthesias as well as bowel or bladder incontinence. Differential diagnosis includes but is not limited to: Degenerative disc disease, musculoskeletal strain, cauda equina, urinary tract infection, pyelonephritis Patient arrives hemodynamically stable, afebrile, without respiratory distress with vital signs interpreted by myself. Initial physical exam reveals tenderness on palpation of the lower lumbar area that radiates to right hip and buttocks. Sensations intact with 2+ pulses as well as 2+ patellar reflexes. Sensations intact with 2+ pulses. Rest of exam is unremarkable Initial diagnostic plan: Norflex and Toradol for pain control Disposition: Advised patient that we will switch her muscle relaxer to see if she gets more relief from the Flexeril instead of the baclofen. Commended that she not take both of those medications together. Advised her to continue taking her previously prescribed gabapentin. Informed her we will give her prescription for ibuprofen for an anti-inflammatory. Commended that she follow- up with her primary care provider for further evaluation of her chronic low back pain including possible referral for orthopedics for further imaging such as MRI to evaluate her pain. Her to come to the emergency department any new or worsening symptoms including saddle anesthesias or bowel or bladder incontinence. Patient is agreeable to plan of care. Critical Care Critical Care Time Critical Care Time: No
[2024-12-20 11:12] VITALS: BP 136/84; PULSE 92; RESP 18; TEMP 36.6; O2SAT 99
== END 2024-12-20 11:12 | disposition home or self-care (01) ==
PROVIDERS: Emergency Provider Student in an Organized Health Care Education/Training Program; PCP Family Medicine
DX: M54.50 Low back pain, unspecified (principal); G89.29 Other chronic pain; F17.210 Nicotine dependence, cigarettes, uncomplicated
CPT/HCPCS: 96372; 99283; 99284; J1885; J2360

== ENCOUNTER 2025-01-20 15:06 | Emergency (ER) | payer BC, SELFPAY ==
--- OUTSIDE RECORDS SUMMARY | 2023-09-26 20:00 | XMS_ITS | Continuity of Care Document ---
Author Organization [facility] Address [address] [place] [id number] Phone Care Team Providers Care Social Worker Delinquency Prevention Name Role Phone Management, Case Unavailable Unavailable Celia Porras Unavailable Unavailable Procedures Procedure Date Face To Face Basic Needs Assistance Health Education Advance Directives Directive Yes / No Effective Date File Name No Information Encounters Encounter Description Practice Location Reason(s) For Visit Diagnoses Date Provider Providers Copied on Encounter [facility], [address] [place] [address], [id number], [place] tel:[phone] [facility] No Information Management Case. . Referring Provider: Case Management .Consultin g Provider: Celia Porras. Family History Family Member Type Diagnosis Age At Onset No Information Payers Payer name Insurance type Covered republican ID Authoriza tion(s) No Information Social History Type Description Quantity Date Captured Comments Sex Female Smoking Status No Information Sexual Orientation Straight or heterosexual Gender Identity Female Chief Complaint And Reason For Visit No Information Reason For Referral Reason For Referral No Information History Of Present Illness Encounter Date Complaint History Of Prese nt Illness No Information Functional Status Date Functional Assessmen t No Information Instructions Date Instruction Additional Infor mation No Information Assessments Type Assessment Date No Information Patient Care Teams Name Effective Dates (start - stop) Status Members No Information
[2025-01-20 15:12] VITALS: BP 214/96; PULSE 80; RESP 18; TEMP 36.4; O2SAT 99; BMI 32.5
[2025-01-20 15:32] LABS: Influenza A, PCR Not Detected (NotDetected); Influenza B, PCR Not Detected (NotDetected)
--- NOTE | 2025-01-20 15:41 | ED_ITS ---
<Statement entered by Aundrea Krishna MD - 01/22/25 14:42> I was consulted by the SHIRLEY, and we discussed the complexity of the problems being addressed. I approved the treatment and management plan for this patient's care in the emergency department, thus performing a substantive portion of the medical decision making. Aundrea Krishna MD, DANIEL, FACEP Discharge Plan Disposition Patient Disposition: Home, Self-Care Prescriptions Prescriptions: No Action gabapentin 800 mg tablet See Rx Instructions .ROUTE .COMPLEX Qty: 60 0RF Dose Instruction: TAKE 1 TABLET BY MOUTH 2 TIMES A DAY FOR NERVE PAIN Rx Instructions: TAKE 1 TABLET BY MOUTH 2 TIMES A DAY FOR NERVE PAIN ibuprofen 600 mg tablet 600 mg PO TID PRN (Reason: pain) 14 Days Qty: 60 0RF buprenorphine-naloxone 8-2 mg tablet, sublingual 1 tab SUBLINGUAL DAILY 17 Days Qty: 17 diclofenac sodium [Arthritis Pain (diclofenac)] 1 % gel 2 g topical QID Qty: 100 2RF Rx Instructions: apply to single elbow, wrist or hand; for hand includes palm/fingers/back of hand pantoprazole 40 mg tablet,delayed release (DR/EC) See Rx Instructions .ROUTE .COMPLEX Qty: 90 2RF Dose Instruction: TAKE ONE TABLET BY MOUTH ONCE A DAY Rx Instructions: TAKE ONE TABLET BY MOUTH ONCE A DAY bupropion HCl 200 mg tablet sustained-release 12 hr See Rx Instructions .ROUTE .COMPLEX Qty: 90 2RF Dose Instruction: TAKE 1 TABLET BY MOUTH TWICE DAILY FOR DEPRESSION Rx Instructions: TAKE 1 TABLET BY MOUTH TWICE DAILY FOR DEPRESSION baclofen 10 mg tablet See Rx Instructions .ROUTE .COMPLEX Qty: 90 2RF Dose Instruction: TAKE 1 TABLET BY MOUTH EVERY 8 HOURS NEEDED FOR MUSCLE SPASMS Rx Instructions: TAKE 1 TABLET BY MOUTH EVERY 8 HOURS NEEDED FOR MUSCLE SPASMS Referrals Follow up/Referrals: Cheryl Yuen APRN [Primary Care Provider, Family Practice] - See instructions Activity Restrictions/Add. Instructions Additional Instructions/Restrictions: Increase fluids and rest. Take Tylenol and ibuprofen for pain and fever if needed. If any other problems or concerns please return to the ED. Clinical Impressions Clinical Impression: Headache, COVID-19 Stand Alone Forms Stand Alone Forms: Work/School Release Instructions Patient Instructions: DI for Headache, COVID-19 Print Language Print Language: Mongolian Discharge ED Provider: Aundrea Krishna General Adult HPI General Chief complaint: Headache Stated complaint: Headache, Congestion, & SOA Time Seen by Provider: 01/20/25 15:32 Mode of Arrival: Ambulatory Source of Information: Patient Description of Symptoms (Recalled from ER Triage Doc. by RN): patient presents for a headache that started a few hours ago. patient stated that she staretd noticing the headahce a couple hours ago and when I touch the right side of my forehead above my eyebrow by whole head goes numb . ingrid also stated she has been vomiting and has a 102 temp at home this morning, she took ibuprofen to reduce fever. History of Present Illness HPI narrative: 54-year-old female presents to the ED today for complaint of headache, nausea, 102 temp this morning, and vomiting a couple days ago. She says she woke up this morning with this 102 temp and she took some ibuprofen at that. She took [place] has lower blood pressure but today it is high. 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 She has been taking care of 3 4 and 5-year-olds with RSV recently. Related Data Home Medications ?Medication ?Instructions ?Recorded ?Confirmed buprenorphine 8 mg-naloxone 2 mg 1 tab sublingual HASEEB Y SUBSTANCE 10/11/24 01/20/25 sublingual tablet ABUSE 17 days #17 tabs Previous Rx's ?Medication ?Instructions ?Recorded diclofenac sodium 1 % topical gel 2 g topical QID #100 grams 10/13/24 (Arthritis Pain (diclofenac)) pantoprazole 40 mg tablet,delayed See Rx Instructions .Route 10/25/24 release .COMPLEX #90 tabs bupropion HCl 200 mg tablet,12 hr See Rx Instructions .Route 12/14/24 sustained-release .COMPLEX #90 tabs baclofen 10 mg tablet See Rx Instructions .Route 1 .COMPLEX #90 tabs gabapentin 800 mg tablet See Rx Instructions .Route 1 .COMPLEX #60 tabs ibuprofen 600 mg tablet 600 mg PO TID PRN pain 2 wee ks #60 01/12/25 tabs Allergies Allergy/AdvReac Type Severity Reaction Status Date / Time No Known Allergies Allergy Verified 01/12/25 16:17 [facility] Disclaimer: The information contained in this section may have been updated after the patient was seen, as this information can be updated by other users. Medical History (Updated 01/20/25 @ 16:45 by Comfort Lund (ED), [employer]) Bilateral thumb pain LLQ abdominal pain History of ovarian cyst Acute radicular low back pain Torticollis Acute viral syndrome UTI (urinary tract infection) Physically able to work Medical clearance for incarceration Exposure to 2019 novel coronavirus Acute viral syndrome Acute viral syndrome Right shoulder pain Fibroid, uterine Depression Breast mass, left Abnormal uterine bleeding Neuropathy Perimenopausal Neuropathy Laceration of hand without complication, including fingers Sting, wasp Surgical History History of endometrial ablation History of lumpectomy of left breast Social History Smoking Status: Current every day smoker tobacco type: cigarettes packs per day: 1 alcohol intake: never substance use type: former substance user and opiates current occupational status: employed Travel in the last 8 weeks?: None household members: children housing: house Have you lived/traveled outside [place] in past 30 days?: No Contact w/someone who lives/traveled outside [place] past 30 days?: No Exposure to someone with infectious disease in past 14 days?: No Do you have a fever (greater than 100.4 F or 38 C)?: No Have you tested positive for COVID-19?: No Exposed to someone with COVID-19 in past 14 days?: No Do you have a sore throat?: No Do you have a cough?: No Do you have any weakness?: No Do you have any diarrhea?: No Are you experiencing any unusual bleeding?: No Do you have any muscle aches/pain?: No Do you have any abdominal pain?: No Are you experiencing loss of taste or smell?: No Other Medical History Have you received the Flu Vaccine for this season: Yes Have you received the Pneumonia Vaccine: Yes ROS Obtained: Yes Systems reviewed as appropriate & no additional complaints ex cept as documented Constitutional Constitutional: Reports as per HPI Physical Exam General General appearance: alert and in no apparent distress Head Head exam: normocephalic Eye Eye exam: Present PERRL and EOMI ENT ENT exam: Present normal oropharynx and mucous membranes moist Neck Neck exam: Present full ROM and trachea midline Respiratory Respiratory exam: Present normal lung sounds bilaterally Cardiovascular Cardiovascular exam: Present regular rate, normal rhythm, normal heart sounds, +S1 and +S2 Abdominal Exam Abdominal exam: Present soft and normal bowel sounds Extremities Exam Extremities exam: Present normal inspection, full ROM and normal capillary refill Neurological Exam Neurological exam: Present alert, oriented X3 and normal gait Skin Skin exam: Present warm, dry and intact Medical Decision Making Medical Records Screening: Per USPSTF and CDC recommendations, given the prevalence of disease in our region, it is our hospital?s policy to screen for HIV and viral Hepatitis for all patients aged 18 and over and those with ongoing risk factors. Avi Inquiry Pt receiving controlled substance: No Avi was queried for this patient: No Vital Signs: 01/20/25 15:12 01/20/25 17:00 Temperature 97.6 F 97.8 F Temperature Source Oral Temporal Artery Scan Pulse Rate 78 Pulse Rate [Right Radial] 80 Respiratory Rate 18 15 Blood Pressure 140/78 Blood Pressure [Left Arm] 214/96 H Blood Pressure Mean [Left Arm] 135 Blood Pressure Source Automatic Cuff Blood Pressure Source [Left Arm] Automatic Cuff Blood Pressure Position Sitting Blood Pressure Position [Left Arm] Sitting 02 Sat by Pulse Oximetry 99 Oxygen Delivery Method Room Air Room Air Lab Data Lab Results 01/20/25 15:25: SARS-CoV-2 (PCR) Detected A, Influenza A Untype (PCR) Not detected, Influenza Type B (PCR) Not detected 01/20/25 15:35: POC RSV Rapid Negative Orders (Tests/Meds): ED MEDICATIONS Discontinued Medications Generic Name Dose Route Start Last Admin Trade Name Freq PRN Reason Stop Dose Admin Acetaminophen 1,000 mg 01/20/25 15:39 01/20/25 15:57 Acetaminophen 1,000mg/100ml Vial IV 01/20/25 15:40 1,000 mg ONCE ONE Administration Sodium Chloride 1,000 mls @ 999 mls/hr 01/20/25 15:39 01/20/25 15:57 Sod Chlor 0.9% 1000ml Bag IV 01/20/25 16:39 999 mls/hr .Q1H1M ONE Administration Ketorolac Tromethamine 30 mg 01/20/25 15:39 01/20/25 15:57 Ketorolac 30mg/Ml Vial IV 01/20/25 15:40 30 mg ONCE ONE Administration Ondansetron HCl 4 mg 01/20/25 15:39 01/20/25 15:57 Ondansetron 4mg/2ml Vial IV 01/20/25 15:40 4 mg ONCE ONE Administration ORDERS Category Date Time Status RSV Rapid Ab Screen Stat Lab 01/20/25 15:35 Completed Rapid PCR Covid and Flu A/B Stat Lab 01/20/25 15:25 Completed Medical Decision Narrative: patient is a 54-year-old female presenting to the emergency department for evaluation of 102 temp, headache, nausea and vomiting. Patient is elevated blood pressure and nontoxic-appearing upon arrival, afebrile. Differential diagnosis includes flu, COVID, RSV, among others. Workup will be conducted with hematologic labs, specific imaging. Initial inventions include crystalloid bolus, analgesics. COVID swab was positive today. Patient's headache has improved as well as blood pressure which is 148/48 currently. Patient has received fluids and IV Tylenol currently. Patient is safe for discharge home. Critical Care Critical Care Time Critical Care Time: No
[2025-01-20 15:56] LABS: Coronavirus 19, PCR Detected (NotDetected)
[2025-01-20] MEDS: 0.9 % SODIUM CHLORIDE 1000ML 1,000 ML 999 ML IV (15:57)
[2025-01-20] MEDS: ONDANSETRON 4MG/2ML VIAL 4 MG IV (15:57)
[2025-01-20] MEDS: ACETAMINOPHEN 1,000MG/100ML VIAL 1000 MG IV (15:57)
[2025-01-20] MEDS: KETOROLAC 30MG/ML VIAL 30 MG IV (15:57)
[2025-01-20 16:05] LABS: RSV Rapid Ab Screen Negative (Negative)
[2025-01-20 17:00] VITALS: BP 140/78; PULSE 78; RESP 15; TEMP 36.6; O2SAT 100
== END 2025-01-20 17:00 | disposition home or self-care (01) ==
PROVIDERS: Nurse Practitioner; Emergency Provider Student in an Organized Health Care Education/Training Program; PCP Family Medicine
DX: U07.1 COVID-19 (principal); R51.9 Headache, unspecified; F17.210 Nicotine dependence, cigarettes, uncomplicated
CPT/HCPCS: 87636; 87807; 96361; 96374; 96375; 99284; J0131; J1885; J2405; J7030